=== PATIENT | male | born 1970 | race Two or more races ===

== ENCOUNTER 2019-01-28 23:46 | Observation (INO) | payer BC, MEDICAID, OTHER ==
--- NOTE | 2019-01-29 00:13 | EDM.PDOC ---
ED HPI GENERAL MEDICAL PROBLEM - General Chief Complaint: General Stated Complaint: DISORIENTED,HEAVY BREATHING Time Seen by Provider: 01/29/19 00:12 Source of Information: Reports: Patient, Family () History Limitations: Reports: Other (Patient is disoriented) - History of Present Illness INITIAL COMMENTS - FREE TEXT/NARRATIVE: 48-year-old male who according to the has been disoriented for the past 3 days. He frequently does not know where he is or what his situation is. He also has been having episodes of difficulty breathing that seemed to come and go and intermittent swelling in his right lower extremity. The reports that he has been drinking alcohol "when he can get it". Apparently he lost his job about 3 months ago and he has basically been staying at home, drinking alcohol whenever he can and has been somewhat depressed. He denies any suicidal or homicidal ideation. He denies any pain. He rates his pain as 0/10. He has had no nausea or vomiting. He has had no abdominal pain. He has been urinating okay. There has been no hematuria or dysuria. He takes no medications but his reports that he has diabetes and hypertension. The patient is disoriented to place and time at present. Apparently tonight he had an episode of difficulty breathing associated with this disorientation and he was brought to the emergency department by his for evaluation. He has had no alcohol today. There are no other associated signs or symptoms. There are no other modifying factors. Onset: Other (Intermittent for the past 3 days) Duration: Intermittent, Waxing/Waning Location: Reports: Other (No pain just episodes of shortness of breath and confusion/disorientation) Quality: Reports: Other (Not applicable) Severity: Moderate Improves with: Reports: None Worsens with: Reports: None Context: Reports: Activity, Other (As above no history of trauma.) Associated Symptoms: Reports: Confusion, Shortness of Breath, Other ( Intermittent leg swelling) Treatments SOLUTIONS CONSULTANT: Reports: Other (see below) (Nothing) - Related Data Allergies Allergy/AdvReac Type Severity Reaction Status Date / Time No Known Allergies Allergy Verified 01/29/15 01:51 Home Meds: Home Meds NK [No Known Home Meds] 01/29/15 [History] Past Medical History Endocrine/Metabolic History: Reports: Obesity/BMI 30+ - Past Surgical History Other Surgical History Comment: No previous surgeries. Social & Family History - Tobacco Use Smoking Status *Q: Current Every Day Smoker Years of Tobacco use: 10 Packs/Tins Daily: 0.2 Tobacco Use Comment: Patient states he smokes anywhere for 4-6 ciggarettes a day. - Caffeine Use Caffeine Use: Reports: None - Alcohol Use Alcohol Use History: Yes Alcohol Use Comment: He drinks up to an 8 pack of beer a day - Recreational Drug Use Recreational Drug Use: Yes Drug Use in Last 12 Months: Yes Recreational Drug Type: Reports: Marijuana/Hashish Recreational Drug Use Frequency: Rarely - Living Situation & Occupation Living situation: Reports: (He is here with his .) Occupation: Unemployed ED ROS GENERAL - Review of Systems Review Of Systems: See Below Constitutional: Reports: No Symptoms HEENT: Reports: No Symptoms Respiratory: Reports: Shortness of Breath Cardiovascular: Reports: No Symptoms GI/Abdominal: Reports: No Symptoms : Reports: No Symptoms Musculoskeletal: Reports: Other (Intermittent swelling in right lower extremity. ) Skin: Reports: No Symptoms Neurological: Reports: No Symptoms Psychiatric: Reports: Depression Hematologic/Lymphatic: Reports: No Symptoms Immunologic: Reports: No Symptoms ED EXAM, GENERAL - Physical Exam Exam: See Below Exam Limited By: No Limitations General Appearance: Alert, Mild Distress, Obese, Other (Disheveled and smells of urine) Eye Exam: Bilateral Eye: EOMI, Normal Inspection, PERRL Ears: Normal External Exam Ear Exam: Bilateral Ear: Auricle Normal Nose: Normal Inspection, Normal Mucosa, No Blood Throat/Mouth: Normal Voice, No Airway Compromise, Other (Dry mouth) Head: Atraumatic, Normocephalic Neck: Normal Inspection Respiratory/Chest: No Respiratory Distress, Lungs Clear, Normal Breath Sounds, No Accessory Muscle Use, Chest Non-Tender Cardiovascular: Normal Peripheral Pulses, Regular Rate, Rhythm, No Murmur Peripheral Pulses: 2+: Radial (L), Radial (R) GI/Abdominal: Normal Bowel Sounds, Soft, Non-Tender, No Mass, Other (Protuberant ) Back Exam: Normal Inspection Extremities: Normal Inspection, Normal Range of Motion, Non-Tender, Normal Capillary Refill Neurological: Alert, CN II-XII Intact, No Motor/Sensory Deficits, Confused, Disoriented Skin Exam: Warm, Dry, Intact, Normal Color, No Rash EKG INTERPRETATION EKG Date: 01/29/19 Time: 00:42 Rhythm: NSR [place]: Normal P-Wave: Present QRS: Other (LDH) ST-T: Normal QT: Normal (But with prolonged QTC) Comparison: NA - No Prior EKG Course - Vital Signs Last Recorded V/S: Last Vital Signs Temp 36.7 C 01/29/19 02:11 Pulse 74 01/29/19 02:11 Resp 14 01/29/19 02:11 BP 175/90 H 01/29/19 02:11 Pulse Ox 100 01/29/19 02:11 - Orders/Labs/Meds Orders: Active Orders 24 hr Category Date Time Status EKG Documentation Completion [RC] ASDIRECTED Care 01/29/19 00:24 Active Ang Chest [CT] Stat Exams 01/29/19 01:33 Ordered Chest 2V [CR] Stat Exams 01/29/19 00:22 Taken Head wo Cont [CT] Stat Exams 01/29/19 00:22 Taken Sodium Chloride 0.9% [Normal Saline] 1,000 ml Med 01/29/19 02:46 Active IV .BOLUS Sodium Chloride 0.9% [Saline Flush] Med 01/29/19 00:22 Active 10 ml FLUSH ASDIRECTED PRN Peripheral IV Insertion Adult [OM.PC] Routine Oth 01/29/19 00:22 Ordered EKG 12 Lead [EK] Routine Ther 01/29/19 00:22 Ordered Medication Orders Sodium Chloride (Normal Saline) 1,000 mls @ 999 mls/hr IV .BOLUS ONE Stop: 01/29/19 03:46 Last Admin: 01/29/19 02:35 Dose: 999 mls/hr Sodium Chloride (Normal Saline) 1,000 mls @ 125 mls/hr IV ASDIRECTED SRINATH Lorazepam (Ativan) 1 mg IVPUSH Q2H PRN PRN Reason: Agitation Ondansetron HCl (Zofran) 4 mg IV Q6H PRN PRN Reason: Nausea/Vomiting Sodium Chloride (Saline Flush) 10 ml FLUSH ASDIRECTED PRN PRN Reason: Keep Vein Open Last Admin: 01/29/19 02:46 Dose: 10 ml Admin: 01/29/19 01:30 Dose: 10 ml Labs: Laboratory Tests 01/29/19 01/29/19 01/29/19 Range/Units 00:30 00:30 00:30 WBC 2.5 L (4.5-12.0) X10-3/uL RBC 3.36 L (4.30-5.75) x10(6)uL Hgb 12.3 L (13.5-17.8) g/dL Hct 35.3 (30.0-51.3) % MCV 105.2 H (80-96) fL MCH 36.6 H (27.7-33.6) pg MCHC 34.9 (32.2-35.4) g/dL RDW 16.6 H (11.5-15.5) % Plt Count 38 L (125-369) X10(3)uL MPV 9.1 (7.4-10.4) fL Neut % (Auto) 61.0 (46-82) % Lymph % (Auto) 26.8 (13-37) % [place] % (Auto) 8.1 (4-12) % Eos % (Auto) 2 (1.0-5.0) % Baso % (Auto) 2 (0-2) % Neut # (Auto) 1.5 L (1.6-8.3) # Lymph # (Auto) 0.7 (0.6-5.0) # [place] # (Auto) 0.2 (0.0-1.3) # Eos # (Auto) 0.1 (0.0-0.8) # Baso # (Auto) 0.0 (0.0-0.2) # D-Dimer, Quantitative (0.0-0.59) mg/LFEU POC VBG pH (7.31-7.41) POC VBG pCO2 (41-51) mmHG POC VBG HCO3 (23-28) mmol/L POC VBG Total CO2 (24-29) mmol/L POC VBG Base Excess (-2-3) mmol/L Sodium 142 (135-145) mmol/L Potassium 4.0 (3.5-5.3) mmol/L Chloride 111 H (100-110) mmol/L Carbon Dioxide 25 (21-32) mmol/L BUN 6 L (7-18) mg/dL Creatinine 0.8 (0.70-1.30) mg/dL Est Cr Clr Drug Dosing 114.15 mL/min Estimated GFR (MDRD) > 60 (>60) BUN/Creatinine Ratio 7.5 L (9-20) Glucose 162 H (80-116) mg/dL Calcium 8.3 L (8.6-10.2) mg/dL Magnesium (1.8-2.5) mg/dL Total Bilirubin 2.8 H (0.1-1.3) mg/dL AST 94 H (5-25) IU/L ALT 56 H (12-36) U/L Alkaline Phosphatase 239 H (56-112) IU/L Troponin I 0.027 (<0.017-0.056) ng/mL C-Reactive Protein 0.4 L (0.5-0.9) mg/dL NT-Pro-B Natriuret Pep 92 (<=125) pg/mL Total Protein 7.2 (6.0-8.0) g/dL Albumin 2.2 L (3.5-5.2) g/dL Globulin 5.0 g/dL Albumin/Globulin Ratio 0.4 Urine Color (YELLOW) Urine Appearance (CLEAR) Urine pH (5.0-6.5) Ur Specific [place] (1.010-1.025) Urine Protein (NEGATIVE) mg/dL Urine Glucose (UA) (NORMAL) mg/dL Urine Ketones (NEGATIVE) mg/dL Urine Occult Blood (NEGATIVE) Urine Nitrite (NEGATIVE) Urine Bilirubin (NEGATIVE) Urine Urobilinogen (NEGATIVE) mg/dL Ur Leukocyte Esterase (NEGATIVE) Urine RBC (0-5) Urine WBC (0-5) Ur Squamous Epith Cells (NS,R,O) Urine Bacteria (NS) Urine Mucus (NS) Ethyl Alcohol < 0.03 (<0.03) % 01/29/19 01/29/19 01/29/19 Range/Units 00:30 00:30 00:33 WBC (4.5-12.0) X10-3/uL RBC (4.30-5.75) x10(6)uL Hgb (13.5-17.8) g/dL Hct (30.0-51.3) % MCV (80-96) fL MCH (27.7-33.6) pg MCHC (32.2-35.4) g/dL RDW (11.5-15.5) % Plt Count (125-369) X10(3)uL MPV (7.4-10.4) fL Neut % (Auto) (46-82) % Lymph % (Auto) (13-37) % [place] % (Auto) (4-12) % Eos % (Auto) (1.0-5.0) % Baso % (Auto) (0-2) % Neut # (Auto) (1.6-8.3) # Lymph # (Auto) (0.6-5.0) # [place] # (Auto) (0.0-1.3) # Eos # (Auto) (0.0-0.8) # Baso # (Auto) (0.0-0.2) # D-Dimer, Quantitative 1.07 H (0.0-0.59) mg/LFEU POC VBG pH 7.40 (7.31-7.41) POC VBG pCO2 38.9 L (41-51) mmHG POC VBG HCO3 23.8 (23-28) mmol/L POC VBG Total CO2 25 (24-29) mmol/L POC VBG Base Excess -1 (-2-3) mmol/L Sodium (135-145) mmol/L Potassium (3.5-5.3) mmol/L Chloride (100-110) mmol/L Carbon Dioxide (21-32) mmol/L BUN (7-18) mg/dL Creatinine (0.70-1.30) mg/dL Est Cr Clr Drug Dosing mL/min Estimated GFR (MDRD) (>60) BUN/Creatinine Ratio (9-20) Glucose (80-116) mg/dL Calcium (8.6-10.2) mg/dL Magnesium 1.7 L (1.8-2.5) mg/dL Total Bilirubin (0.1-1.3) mg/dL AST (5-25) IU/L ALT (12-36) U/L Alkaline Phosphatase (56-112) IU/L Troponin I (<0.017-0.056) ng/mL C-Reactive Protein (0.5-0.9) mg/dL NT-Pro-B Natriuret Pep (<=125) pg/mL Total Protein (6.0-8.0) g/dL Albumin (3.5-5.2) g/dL Globulin g/dL Albumin/Globulin Ratio Urine Color (YELLOW) Urine Appearance (CLEAR) Urine pH (5.0-6.5) Ur Specific [place] (1.010-1.025) Urine Protein (NEGATIVE) mg/dL Urine Glucose (UA) (NORMAL) mg/dL Urine Ketones (NEGATIVE) mg/dL Urine Occult Blood (NEGATIVE) Urine Nitrite (NEGATIVE) Urine Bilirubin (NEGATIVE) Urine Urobilinogen (NEGATIVE) mg/dL Ur Leukocyte Esterase (NEGATIVE) Urine RBC (0-5) Urine WBC (0-5) Ur Squamous Epith Cells (NS,R,O) Urine Bacteria (NS) Urine Mucus (NS) Ethyl Alcohol (<0.03) % 01/29/19 Range/Units 01:20 WBC (4.5-12.0) X10-3/uL RBC (4.30-5.75) x10(6)uL Hgb (13.5-17.8) g/dL Hct (30.0-51.3) % MCV (80-96) fL MCH (27.7-33.6) pg MCHC (32.2-35.4) g/dL RDW (11.5-15.5) % Plt Count (125-369) X10(3)uL MPV (7.4-10.4) fL Neut % (Auto) (46-82) % Lymph % (Auto) (13-37) % [place] % (Auto) (4-12) % Eos % (Auto) (1.0-5.0) % Baso % (Auto) (0-2) % Neut # (Auto) (1.6-8.3) # Lymph # (Auto) (0.6-5.0) # [place] # (Auto) (0.0-1.3) # Eos # (Auto) (0.0-0.8) # Baso # (Auto) (0.0-0.2) # D-Dimer, Quantitative (0.0-0.59) mg/LFEU POC VBG pH (7.31-7.41) POC VBG pCO2 (41-51) mmHG POC VBG HCO3 (23-28) mmol/L POC VBG Total CO2 (24-29) mmol/L POC VBG Base Excess (-2-3) mmol/L Sodium (135-145) mmol/L Potassium (3.5-5.3) mmol/L Chloride (100-110) mmol/L Carbon Dioxide (21-32) mmol/L BUN (7-18) mg/dL Creatinine (0.70-1.30) mg/dL Est Cr Clr Drug Dosing mL/min Estimated GFR (MDRD) (>60) BUN/Creatinine Ratio (9-20) Glucose (80-116) mg/dL Calcium (8.6-10.2) mg/dL Magnesium (1.8-2.5) mg/dL Total Bilirubin (0.1-1.3) mg/dL AST (5-25) IU/L ALT (12-36) U/L Alkaline Phosphatase (56-112) IU/L Troponin I (<0.017-0.056) ng/mL C-Reactive Protein (0.5-0.9) mg/dL NT-Pro-B Natriuret Pep (<=125) pg/mL Total Protein (6.0-8.0) g/dL Albumin (3.5-5.2) g/dL Globulin g/dL Albumin/Globulin Ratio Urine Color Yellow (YELLOW) Urine Appearance Clear (CLEAR) Urine pH 6.0 (5.0-6.5) Ur Specific [place] 1.020 (1.010-1.025) Urine Protein Negative (NEGATIVE) mg/dL Urine Glucose (UA) Normal (NORMAL) mg/dL Urine Ketones Negative (NEGATIVE) mg/dL Urine Occult Blood Moderate (NEGATIVE) Urine Nitrite Negative (NEGATIVE) Urine Bilirubin Negative (NEGATIVE) Urine Urobilinogen 4 H (NEGATIVE) mg/dL Ur Leukocyte Esterase Negative (NEGATIVE) Urine RBC 5-10 H (0-5) Urine WBC 0-5 (0-5) Ur Squamous Epith Cells Few H (NS,R,O) Urine Bacteria Few H (NS) Urine Mucus Moderate H (NS) Ethyl Alcohol (<0.03) % Meds: Medications Generic Name Dose Route Start Last Admin Trade Name Freq PRN Reason Stop Dose Admin Sodium Chloride 1,000 mls @ 999 mls/hr 01/29/19 02:46 01/29/19 02:35 Normal Saline IV 01/29/19 03:46 999 mls/hr .BOLUS ONE Administration Sodium Chloride 1,000 mls @ 125 mls/hr 01/29/19 03:30 Normal Saline IV ASDIRECTED SRINATH Lorazepam 1 mg 01/29/19 03:21 Ativan IVPUSH Q2H PRN Agitation Ondansetron HCl 4 mg 01/29/19 03:16 Zofran IV Q6H PRN Nausea/Vomiting Sodium Chloride 10 ml 01/29/19 00:22 01/29/19 02:46 Saline Flush FLUSH 10 ml ASDIRECTED PRN Administration Keep Vein Open Discontinued Medications Generic Name Dose Route Start Last Admin Trade Name Cat PRN Reason Stop Dose Admin Sodium Chloride 500 mls @ 999 mls/hr 01/29/19 01:32 Normal Saline IV 01/29/19 02:02 .BOLUS ONE Iopamidol 100 ml 01/29/19 01:53 01/29/19 02:34 Isovue-370 (76%) IV 01/29/19 01:54 100 ml ONETIME ONE Administration Lorazepam 1 mg 01/29/19 01:50 01/29/19 02:01 Ativan IVPUSH 01/29/19 01:51 1 mg ONETIME ONE Administration - Radiology Interpretation Free Text/Narrative:: Chest x-ray PA and lateral showed no acute disease. - Re-Assessments/Exams Free Text/Narrative Re-Assessment/Exam: 01/29/19 01:36: Patient's blood tests show thrombocytopenia. He also has evidence of liver disease. His chest x-ray was normal. The CT scan of his head showed no acute pathology. His d-dimer was elevated. He will need a CT of his chest rule out PE secondary to his elevated d-dimer and the complaint of shortness of breath and will also give the patient a normal saline 500 mL bolus. 01/29/19 03:30: CTA of the chest showed no definite pulmonary embolus but it was not an optimal study. His sensorium has not cleared. He remains confused and has had episodes of agitation. This agitation improved with Ativan IV. His labs are consistent with alcohol related findings. His confirms that for the end of last week he was drinking about an 18 pack year a day for about 4-5 days. I do feel the patient cannot be safely discharged secondary to his encephalopathy. The patient also has intermittent swelling in his right lower extremity, he may need Doppler venous ultrasound of this leg later today. I will continue IV fluid hydration. I will continue Ativan as needed for agitation and for treatment of his alcohol withdrawal. The hope is that his sensorium will clear. Dr. Centeno will assume care of the patient at 0700 hrs. today, 01/29/2019. I discussed admission with the patient and with his and they are in agreement with the plans for admission. 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 dependence with withdrawal with perceptual disturbance - Discharge Information - My Orders Last 24 Hours: My Active Orders 01/29/19 00:22 Chest 2V [CR] Stat Head wo Cont [CT] Stat Sodium Chloride 0.9% [Saline Flush] 10 ml FLUSH ASDIRECTED PRN Peripheral IV Insertion Adult [OM.PC] Routine EKG 12 Lead [EK] Routine 01/29/19 00:24 EKG Documentation Completion [RC] ASDIRECTED 01/29/19 01:33 Ang Chest [CT] Stat 01/29/19 02:46 Sodium Chloride 0.9% [Normal Saline] 1,000 ml IV .BOLUS - Assessment/Plan Last 24 Hours: My Active Orders 01/29/19 00:22 Chest 2V [CR] Stat Head wo Cont [CT] Stat Sodium Chloride 0.9% [Saline Flush] 10 ml FLUSH ASDIRECTED PRN Peripheral IV Insertion Adult [OM.PC] Routine EKG 12 Lead [EK] Routine 01/29/19 00:24 EKG Documentation Completion [RC] ASDIRECTED 01/29/19 01:33 Ang Chest [CT] Stat 01/29/19 02:46 Sodium Chloride 0.9% [Normal Saline] 1,000 ml IV .BOLUS
[2019-01-29] MEDS: Sodium Chloride 0.9% 10 ML Syringe FLUSH PRN ×3 (01:30→05:11)
[2019-01-29] MEDS ORDERED: Sodium Chloride 0.9% 500 ML IV ONE (01:32)
[2019-01-29] MEDS ORDERED: LORazepam 2 MG/ML SDV IVPUSH ONE (01:50)
[2019-01-29] MEDS ORDERED: Iopamidol 755 Mg/ML 100 ML Bottle IV ONE (01:53)
[2019-01-29] MEDS ORDERED: Sodium Chloride 0.9% 1,000 ML IV ONE (02:46)
[2019-01-29] MEDS ORDERED: Ondansetron 4 MG/2 ML SDV IV PRN (03:16)
[2019-01-29] MEDS ORDERED: LORazepam 2 MG/ML SDV IVPUSH PRN (03:21)
[2019-01-29] MEDS ORDERED: Sodium Chloride 0.9% 1,000 ML IV SCH (03:30)
--- NOTE | 2019-01-29 11:12 | CR ---
INDICATION: Shortness of breath. CHEST: PA and lateral views of the chest were obtained 01/29/19 and compared with chest from 01/29/15. The heart appears to be near the upper limits of normal in size with left ventricular enlargement of mild degree. The aorta is mildly tortuous with minimal calcification in the arch. Dextroconvex scoliosis of the thoracic spine is noted with flowing hyperostotic changes suggesting DISH. An active infiltrate or effusion was not identified. Evidence of exogenous obesity is noted. IMPRESSION: 1. ASHD with mild LVE. 2. Exogenous obesity. 3. Possible DISH with mild dextroconvex scoliosis of the thoracic spine. MTDD
--- NOTE | 2019-01-29 11:16 | US ---
INDICATION: Bilateral leg swelling, elevated D-dimer, question bilateral DVT. DUPLEX ULTRASOUND, LEFT AND RIGHT LOWER EXTREMITY VEINS: Utilizing 2-D real time, duplex Doppler spectral analysis and color flow imaging, examination of the left and right lower extremity veins, including the common femoral vein, proximal greater saphenous vein, proximal deep femoral vein, proximal femoral vein, mid femoral vein, distal femoral vein, popliteal vein, posterior tibial vein, anterior tibial vein, and left peroneal vein, (right peroneal vein not demonstrated), revealed no evidence of deep venous thrombosis or obstruction. Compression views showed no abnormal lack of compression to suggest thrombosis. No evidence of incompetence of the valves was identified. IMPRESSION: Duplex ultrasound, left and right lower extremity veins, shows no evidence of deep venous thrombosis or incompetence. [facility]
--- NOTE | 2019-01-29 11:48 | PCM.HP ---
H&P History of Present Illness - General Date of Service: 01/29/19 Admit Problem/Dx: Admission Diagnosis/Problem Admission Diagnosis/Problem Encephalopathy Source of Information: Patient, EMS Notes Reviewed, Old Records - History of Present Illness Initial Comments - Free Text/Narative: 48-year-old male who has been more confused and disoriented over the past 3 days but he states past week. He also has been having episodes of difficulty breathing that seemed to come and go and intermittent swelling in his right lower extremity. 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 He had been sober since 1993 when he went through AA program. He denies any suicidal or homicidal ideation. He denies any pain. No chest pain, coughing, nausea, vomiting, diarrhea, abdominal pain, no dysuria or hematuria. Takes diphenhydramine at night for sleep. He reports last drink was a few days ago. No history of DTs or alcohol withdrawal seizures. Has daily bowel movements. Last night he had an episode of difficulty breathing associated with this disorientation and he was brought to the emergency department by his for evaluation. - Related Data Allergies/Adverse Reactions: Allergies Allergy/AdvReac Type Severity Reaction Status Date / Time No Known Allergies Allergy Verified 01/29/15 01:51 Home Medications: Home Meds diphenhydrAMINE HCl [Nighttime Sleep Aid] 25 mg PO BEDTIME PRN 01/29/19 [History ] Past Medical History Other Musculoskeletal History: old L hand fx Endocrine/Metabolic History: Reports: Obesity/BMI 30+ - Past Surgical History Other Surgical History Comment: No previous surgeries. Social & Family History - Family History Family Medical History: Unobtainable - Tobacco Use Smoking Status *Q: Current Every Day Smoker Years of Tobacco use: 10 Packs/Tins Daily: 0.2 Tobacco Use Comment: Patient states he smokes anywhere for 4-6 ciggarettes a day. - Caffeine Use Caffeine Use: Reports: None - Alcohol Use Alcohol Use History: Yes Date/Time of Last Drink Comment: 01/26/2019 Alcohol Use in Last Twelve Months: Yes Alcohol Use Frequency: Daily Alcohol Use Comment: had been sober since 1993 but started drinking again in October 2018. - Recreational Drug Use Recreational Drug Use: Yes Drug Use in Last 12 Months: Yes Recreational Drug Type: Reports: Marijuana/Hashish Recreational Drug Use Frequency: Rarely - Living Situation & Occupation Living situation: Reports: (He is here with his .) Occupation: Unemployed H&P Review of Systems - Review of Systems: Review Of Systems: See Below General: Denies: Fever, Chills, Malaise, Diaphoresis HEENT: Reports: No Symptoms Pulmonary: Reports: Shortness of Breath. Denies: Cough Cardiovascular: Reports: Edema. Denies: Chest Pain, Palpitations Gastrointestinal: Denies: Abdominal Pain, Black Stool, Bloody Stool, Constipation, Diarrhea, Decreased Appetite, Nausea, Vomiting Genitourinary: Denies: Dysuria, Frequency, Hematuria Musculoskeletal: Reports: Leg Pain Skin: Reports: Other (acanthosis nigricans, skin tags, stasis dermatitis) Psychiatric: Reports: Confusion, Depression. Denies: Hallucinations, Suicidal Ideation Neurological: Reports: Tremors. Denies: Dizziness, Headache, Tingling Exam - Exam Exam: See Below - Vital Signs Vital Signs: Last Vital Signs Temp 36.7 C 01/29/19 08:00 Pulse 72 01/29/19 08:00 Resp 18 01/29/19 08:00 BP 138/72 01/29/19 08:00 Pulse Ox 100 01/29/19 08:00 Weight: 164.427 kg - Exam General: Alert, Cooperative Lungs: Clear to Auscultation, Normal Respiratory Effort Cardiovascular: Regular Rate, Regular Rhythm GI/Abdominal Exam: Normal Bowel Sounds, Soft, Non-Tender Extremities: Pedal Edema (3+ RLE, 2+LLE), Leg Pain. No: Rachna's Sign, Increased Warmth Skin: Other (acanthosis nigricans, skin tags, stasis dermatitis) Neuro Extensive - Mental Status: Alert, Oriented x3 Neuro Extensive - Motor, Sensory, Reflexes: CN II-XII Intact, Tremor Psychiatric: Normal Affect - Patient Data Lab Results Last 24 hrs: Laboratory Results - last 24 hr 01/29/19 01/29/19 01/29/19 Range/Units 00:30 00:30 00:30 WBC 2.5 L (4.5-12.0) X10-3/uL RBC 3.36 L (4.30-5.75) x10(6)uL Hgb 12.3 L (13.5-17.8) g/dL Hct 35.3 (30.0-51.3) % MCV 105.2 H (80-96) fL MCH 36.6 H (27.7-33.6) pg MCHC 34.9 (32.2-35.4) g/dL RDW 16.6 H (11.5-15.5) % Plt Count 38 L (125-369) X10(3)uL MPV 9.1 (7.4-10.4) fL Neut % (Auto) 61.0 (46-82) % Lymph % (Auto) 26.8 (13-37) % [place] % (Auto) 8.1 (4-12) % Eos % (Auto) 2 (1.0-5.0) % Baso % (Auto) 2 (0-2) % Neut # (Auto) 1.5 L (1.6-8.3) # Lymph # (Auto) 0.7 (0.6-5.0) # [place] # (Auto) 0.2 (0.0-1.3) # Eos # (Auto) 0.1 (0.0-0.8) # Baso # (Auto) 0.0 (0.0-0.2) # D-Dimer, Quantitative (0.0-0.59) mg/LFEU POC VBG pH (7.31-7.41) POC VBG pCO2 (41-51) mmHG POC VBG HCO3 (23-28) mmol/L POC VBG Total CO2 (24-29) mmol/L POC VBG Base Excess (-2-3) mmol/L Sodium 142 (135-145) mmol/L Potassium 4.0 (3.5-5.3) mmol/L Chloride 111 H (100-110) mmol/L Carbon Dioxide 25 (21-32) mmol/L BUN 6 L (7-18) mg/dL Creatinine 0.8 (0.70-1.30) mg/dL Est Cr Clr Drug Dosing 114.15 mL/min Estimated GFR (MDRD) > 60 (>60) BUN/Creatinine Ratio 7.5 L (9-20) Glucose 162 H (80-116) mg/dL POC Glucose (80-116) mg/dL Calcium 8.3 L (8.6-10.2) mg/dL Magnesium (1.8-2.5) mg/dL Total Bilirubin 2.8 H (0.1-1.3) mg/dL AST 94 H (5-25) IU/L ALT 56 H (12-36) U/L Alkaline Phosphatase 239 H (56-112) IU/L Troponin I 0.027 (<0.017-0.056) ng/mL C-Reactive Protein 0.4 L (0.5-0.9) mg/dL NT-Pro-B Natriuret Pep 92 (<=125) pg/mL Total Protein 7.2 (6.0-8.0) g/dL Albumin 2.2 L (3.5-5.2) g/dL Globulin 5.0 g/dL Albumin/Globulin Ratio 0.4 Urine Color (YELLOW) Urine Appearance (CLEAR) Urine pH (5.0-6.5) Ur Specific [place] (1.010-1.025) Urine Protein (NEGATIVE) mg/dL Urine Glucose (UA) (NORMAL) mg/dL Urine Ketones (NEGATIVE) mg/dL Urine Occult Blood (NEGATIVE) Urine Nitrite (NEGATIVE) Urine Bilirubin (NEGATIVE) Urine Urobilinogen (NEGATIVE) mg/dL Ur Leukocyte Esterase (NEGATIVE) Urine RBC (0-5) Urine WBC (0-5) Ur Squamous Epith Cells (NS,R,O) Urine Bacteria (NS) Urine Mucus (NS) Ethyl Alcohol < 0.03 (<0.03) % 01/29/19 01/29/19 01/29/19 Range/Units 00:30 00:30 00:33 WBC (4.5-12.0) X10-3/uL RBC (4.30-5.75) x10(6)uL Hgb (13.5-17.8) g/dL Hct (30.0-51.3) % MCV (80-96) fL MCH (27.7-33.6) pg MCHC (32.2-35.4) g/dL RDW (11.5-15.5) % Plt Count (125-369) X10(3)uL MPV (7.4-10.4) fL Neut % (Auto) (46-82) % Lymph % (Auto) (13-37) % [place] % (Auto) (4-12) % Eos % (Auto) (1.0-5.0) % Baso % (Auto) (0-2) % Neut # (Auto) (1.6-8.3) # Lymph # (Auto) (0.6-5.0) # [place] # (Auto) (0.0-1.3) # Eos # (Auto) (0.0-0.8) # Baso # (Auto) (0.0-0.2) # D-Dimer, Quantitative 1.07 H (0.0-0.59) mg/LFEU POC VBG pH 7.40 (7.31-7.41) POC VBG pCO2 38.9 L (41-51) mmHG POC VBG HCO3 23.8 (23-28) mmol/L POC VBG Total CO2 25 (24-29) mmol/L POC VBG Base Excess -1 (-2-3) mmol/L Sodium (135-145) mmol/L Potassium (3.5-5.3) mmol/L Chloride (100-110) mmol/L Carbon Dioxide (21-32) mmol/L BUN (7-18) mg/dL Creatinine (0.70-1.30) mg/dL Est Cr Clr Drug Dosing mL/min Estimated GFR (MDRD) (>60) BUN/Creatinine Ratio (9-20) Glucose (80-116) mg/dL POC Glucose (80-116) mg/dL Calcium (8.6-10.2) mg/dL Magnesium 1.7 L (1.8-2.5) mg/dL Total Bilirubin (0.1-1.3) mg/dL AST (5-25) IU/L ALT (12-36) U/L Alkaline Phosphatase (56-112) IU/L Troponin I (<0.017-0.056) ng/mL C-Reactive Protein (0.5-0.9) mg/dL NT-Pro-B Natriuret Pep (<=125) pg/mL Total Protein (6.0-8.0) g/dL Albumin (3.5-5.2) g/dL Globulin g/dL Albumin/Globulin Ratio Urine Color (YELLOW) Urine Appearance (CLEAR) Urine pH (5.0-6.5) Ur Specific [place] (1.010-1.025) Urine Protein (NEGATIVE) mg/dL Urine Glucose (UA) (NORMAL) mg/dL Urine Ketones (NEGATIVE) mg/dL Urine Occult Blood (NEGATIVE) Urine Nitrite (NEGATIVE) Urine Bilirubin (NEGATIVE) Urine Urobilinogen (NEGATIVE) mg/dL Ur Leukocyte Esterase (NEGATIVE) Urine RBC (0-5) Urine WBC (0-5) Ur Squamous Epith Cells (NS,R,O) Urine Bacteria (NS) Urine Mucus (NS) Ethyl Alcohol (<0.03) % 01/29/19 01/29/19 Range/Units 01:20 11:33 WBC (4.5-12.0) X10-3/uL RBC (4.30-5.75) x10(6)uL Hgb (13.5-17.8) g/dL Hct (30.0-51.3) % MCV (80-96) fL MCH (27.7-33.6) pg MCHC (32.2-35.4) g/dL RDW (11.5-15.5) % Plt Count (125-369) X10(3)uL MPV (7.4-10.4) fL Neut % (Auto) (46-82) % Lymph % (Auto) (13-37) % [place] % (Auto) (4-12) % Eos % (Auto) (1.0-5.0) % Baso % (Auto) (0-2) % Neut # (Auto) (1.6-8.3) # Lymph # (Auto) (0.6-5.0) # [place] # (Auto) (0.0-1.3) # Eos # (Auto) (0.0-0.8) # Baso # (Auto) (0.0-0.2) # D-Dimer, Quantitative (0.0-0.59) mg/LFEU POC VBG pH (7.31-7.41) POC VBG pCO2 (41-51) mmHG POC VBG HCO3 (23-28) mmol/L POC VBG Total CO2 (24-29) mmol/L POC VBG Base Excess (-2-3) mmol/L Sodium (135-145) mmol/L Potassium (3.5-5.3) mmol/L Chloride (100-110) mmol/L Carbon Dioxide (21-32) mmol/L BUN (7-18) mg/dL Creatinine (0.70-1.30) mg/dL Est Cr Clr Drug Dosing mL/min Estimated GFR (MDRD) (>60) BUN/Creatinine Ratio (9-20) Glucose (80-116) mg/dL POC Glucose 90 (80-116) mg/dL Calcium (8.6-10.2) mg/dL Magnesium (1.8-2.5) mg/dL Total Bilirubin (0.1-1.3) mg/dL AST (5-25) IU/L ALT (12-36) U/L Alkaline Phosphatase (56-112) IU/L Troponin I (<0.017-0.056) ng/mL C-Reactive Protein (0.5-0.9) mg/dL NT-Pro-B Natriuret Pep (<=125) pg/mL Total Protein (6.0-8.0) g/dL Albumin (3.5-5.2) g/dL Globulin g/dL Albumin/Globulin Ratio Urine Color Yellow (YELLOW) Urine Appearance Clear (CLEAR) Urine pH 6.0 (5.0-6.5) Ur Specific [place] 1.020 (1.010-1.025) Urine Protein Negative (NEGATIVE) mg/dL Urine Glucose (UA) Normal (NORMAL) mg/dL Urine Ketones Negative (NEGATIVE) mg/dL Urine Occult Blood Moderate (NEGATIVE) Urine Nitrite Negative (NEGATIVE) Urine Bilirubin Negative (NEGATIVE) Urine Urobilinogen 4 H (NEGATIVE) mg/dL Ur Leukocyte Esterase Negative (NEGATIVE) Urine RBC 5-10 H (0-5) Urine WBC 0-5 (0-5) Ur Squamous Epith Cells Few H (NS,R,O) Urine Bacteria Few H (NS) Urine Mucus Moderate H (NS) Ethyl Alcohol (<0.03) % Result Diagrams: 01/29/19 00:30 01/29/19 00:30 Imaging Impressions Last 24 hrs: CT head: negative. CTA: No pulmonary embolism but distal vessels difficult to assess due to patient movement during exam. US: No DVT BLE, edematous. - Problem List (1) Alcohol withdrawal SNOMED Code(s): 779789417 ICD Code: F10.239 - ALCOHOL DEPENDENCE WITH WITHDRAWAL, UNSPECIFIED Status : Acute Current Visit: Yes Qualifiers: Complication of substance-induced condition: with perceptual disturbance Qualified Code(s): F10.232 - Alcohol dependence with withdrawal with perceptual disturbance (2) Dehydration SNOMED Code(s): 35505838 ICD Code: E86.0 - DEHYDRATION Status: Acute Current Visit: Yes (3) Encephalopathy SNOMED Code(s): 89288561 ICD Code: G93.40 - ENCEPHALOPATHY, UNSPECIFIED Status: Acute Current Visit: Yes (4) Thrombocytopenia SNOMED Code(s): 805448875 ICD Code: D69.6 - THROMBOCYTOPENIA, UNSPECIFIED Status: Acute Current Visit: Yes Problem List Initiated/Reviewed/Updated: Yes Orders Last 24hrs: Active Orders 24 hr Category Date Time Status Admission Status [Patient Status] [ADT] Routine ADT 01/29/19 03:07 Active Blood Glucose Check, Bedside [RC] QIDACANDBED Care 01/29/19 03:16 Active CIWAA Assessment [RC] 00,04,08,12,16,20 Care 01/29/19 03:20 Active EKG Documentation Completion [RC] ASDIRECTED Care 01/29/19 00:24 Active Height and Weight [RC] UPON Care 01/29/19 03:16 Active Intake and Output [RC] 06,14,22 Care 01/29/19 03:17 Active Oxygen Therapy [RC] PRN Care 01/29/19 03:16 Active Pulse Oximetry [RC] PRN Care 01/29/19 03:17 Active Up With Assistance [RC] ASDIRECTED Care 01/29/19 03:16 Active VTE/DVT Education [RC] Per Unit Routine Care 01/29/19 03:16 Active Vital Signs [RC] 00,04,08,12,16,20 Care 01/29/19 03:16 Active Consistent Carbohydrate Diet [DIET] Diet 01/29/19 Breakfast Active Ang Chest [CT] Stat Exams 01/29/19 01:33 Taken Head wo Cont [CT] Stat Exams 01/29/19 00:22 Taken LORazepam [Ativan] Med 01/29/19 03:21 Active 1 mg IVPUSH Q2H PRN Ondansetron [Zofran] Med 01/29/19 03:16 Active 4 mg IV Q6H PRN Sodium Chloride 0.9% [Saline Flush] Med 01/29/19 00:22 Active 10 ml FLUSH ASDIRECTED PRN Convert IV to Saline Lock [OM.PC] Routine Oth 01/29/19 08:38 Ordered Peripheral IV Insertion Adult [OM.PC] Routine Oth 01/29/19 00:22 Ordered Resuscitation Status Routine Resus Stat 01/29/19 03:16 Ordered EKG 12 Lead [EK] Routine Ther 01/29/19 00:22 Stop Req Medication Orders Lorazepam (Ativan) 1 mg IVPUSH Q2H PRN PRN Reason: Agitation Last Admin: 01/29/19 05:07 Dose: 1 mg Ondansetron HCl (Zofran) 4 mg IV Q6H PRN PRN Reason: Nausea/Vomiting Sodium Chloride (Saline Flush) 10 ml FLUSH ASDIRECTED PRN PRN Reason: Keep Vein Open Last Admin: 01/29/19 05:11 Dose: 10 ml Admin: 01/29/19 02:46 Dose: 10 ml Admin: 01/29/19 01:30 Dose: 10 ml Assessment/Plan Comment:: 1. Admit for observation for alcohol withdrawal, confusion, depression, thrombocytopenia. 2. [facility] protocol for withdrawal symptoms, referral to [facility]. Thiamine, folate and MTV daily. Repeat labs in am. 3. Ultrasound for leg swelling showed no DVT but edematous. Has stasis dermatitis changes to skin, WBC is low. 4. Saline lock, completed IV fluids started in ER. 5. If patient improved overnight, would anticipate discharge tomorrow. 6. Adjust treatments as necessary. 7. Full Code.
[2019-01-29] MEDS ORDERED: Folic Acid 1 MG Tab PO SCH (21:00)
[2019-01-29] MEDS ORDERED: Thiamine 100 MG Tab PO SCH (21:00)
[2019-01-29] MEDS ORDERED: Magnesium Oxide 400 MG Tab PO SCH (21:00)
[2019-01-29] MEDS ORDERED: Multivitamin Tab PO SCH (21:00)
[2019-01-30 10:06] VITALS: BP 174/83; PULSE 75
--- NOTE | 2019-01-30 12:47 | PCM.DCSUM1 ---
Discharge Summary - Hospital Course HPI Initial Comments: 48-year-old male who has been more confused and disoriented over the past 3 days but he states past week. He also has been having episodes of difficulty breathing that seemed to come and go and intermittent swelling in his right lower extremity. 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 He had been sober since 1993 when he went through AA program. He denies any suicidal or homicidal ideation. He denies any pain. No chest pain, coughing, nausea, vomiting, diarrhea, abdominal pain, no dysuria or hematuria. Takes diphenhydramine at night for sleep. He reports last drink was a few days ago. No history of DTs or alcohol withdrawal seizures. Has daily bowel movements. Last night he had an episode of difficulty breathing associated with this disorientation and he was brought to the emergency department by his for evaluation. Diagnosis: Stroke: No - Discharge Data Discharge Date: 01/30/19 Discharge Disposition: Home, Self-Care 01 Condition: Good - Discharge Diagnosis/Problem(s) (1) Alcohol withdrawal SNOMED Code(s): 472512717 ICD Code: F10.239 - ALCOHOL DEPENDENCE WITH WITHDRAWAL, UNSPECIFIED Status : Acute Qualifiers: Complication of substance-induced condition: with perceptual disturbance Qualified Code(s): F10.232 - Alcohol dependence with withdrawal with perceptual disturbance (2) Dehydration SNOMED Code(s): 80499525 ICD Code: E86.0 - DEHYDRATION Status: Resolved (3) Encephalopathy SNOMED Code(s): 79844766 ICD Code: G93.40 - ENCEPHALOPATHY, UNSPECIFIED Status: Resolved (4) Thrombocytopenia SNOMED Code(s): 468954139 ICD Code: D69.6 - THROMBOCYTOPENIA, UNSPECIFIED Status: Acute - Patient Summary/Data Hospital Course: Patient was admitted for observation and IV Fluids. Completed IV fluids and felt better. [facility] protocol for alcohol withdrawal, gradually trended down, very rare tremors on day of discharge. Patient mentation improved during hospital course, he felt back to his baseline at discharge. Ultrasound of RLE showed edema but no DVT. Had no signs of cellulitis, chronic stasis dermatitis. Met with Chemical dependence counselor from [facility], did not qualify for services with [facility] as he is resident of [place] but she gave resources available in [facility] for him. - Patient Instructions Diet: Regular Diet as Tolerated Driving: May Drive Today Showering/Bathing: May Shower Notify Provider of: Fever, Increased Pain, Swelling and Redness - Discharge Plan *PRESCRIPTION DRUG MONITORING PROGRAM REVIEWED*: Not Applicable *COPY OF PRESCRIPTION DRUG MONITORING REPORT IN PATIENT MINDA: No Home Medications: Home Meds diphenhydrAMINE HCl [Nighttime Sleep Aid] 25 mg PO BEDTIME PRN 01/29/19 [History ] Forms: Return to Work, Inpatient [facility], ED Department Discharge Referrals: Anthony Lara MD [Primary Care Provider] - - Discharge Summary/Plan Comment DC Time >30 min.: No - Patient Data Vitals - Most Recent: Last Vital Signs Temp 36.7 C 01/30/19 07:33 Pulse 75 01/30/19 07:33 Resp 18 01/30/19 07:33 BP 174/83 H 01/30/19 07:33 Pulse Ox 100 01/30/19 07:33 Weight - Most Recent: 164.427 kg I&O - Last 24 hours: Intake & Output 01/29/19 01/30/19 01/30/19 22:59 06:59 14:59 Output Total 600 1300 Balance -600 -1300 Lab Results - Last 24 hrs: Laboratory Results - last 24 hr 01/29/19 01/29/19 Range/Units 17:45 21:20 POC Glucose 101 111 (80-116) mg/dL Med Orders - Current: Current Medications Discontinued Medications Folic Acid (Folic Acid) 1 mg PO BEDTIME [facility] Last Admin: 01/29/19 21:16 Dose: 1 mg Sodium Chloride (Normal Saline) 500 mls @ 999 mls/hr IV .BOLUS ONE Stop: 01/29/19 02:02 Last Admin: 01/29/19 04:32 Dose: Not Given Sodium Chloride (Normal Saline) 1,000 mls @ 999 mls/hr IV .BOLUS ONE Stop: 01/29/19 03:46 Last Admin: 01/29/19 02:35 Dose: 999 mls/hr Sodium Chloride (Normal Saline) 1,000 mls @ 125 mls/hr IV ASDIRECTED [facility] Last Admin: 01/30/19 03:00 Dose: 125 mls/hr Iopamidol (Isovue-370 (76%)) 100 ml IV ONETIME ONE Stop: 01/29/19 01:54 Last Admin: 01/29/19 02:34 Dose: 100 ml Lorazepam (Ativan) 1 mg IVPUSH ONETIME ONE Stop: 01/29/19 01:51 Last Admin: 01/29/19 02:01 Dose: 1 mg Lorazepam (Ativan) 1 mg IVPUSH Q2H PRN PRN Reason: Agitation Last Admin: 01/29/19 05:07 Dose: 1 mg Magnesium Oxide (Magnesium Oxide) 400 mg PO BEDTIME SRINATH Last Admin: 01/29/19 21:16 Dose: 400 mg Multivitamins/Minerals/Vitamin C (Tab-A-Tamika) 1 tab PO BEDTIME SRINATH Last Admin: 01/29/19 21:16 Dose: 1 tab Ondansetron HCl (Zofran) 4 mg IV Q6H PRN PRN Reason: Nausea/Vomiting Sodium Chloride (Saline Flush) 10 ml FLUSH ASDIRECTED PRN PRN Reason: Keep Vein Open Last Admin: 01/29/19 05:11 Dose: 10 ml Thiamine HCl (Vitamin B-1) 100 mg PO BEDTIME SRINATH Last Admin: 01/29/19 21:16 Dose: 100 mg - Exam General: Reports: Alert, Oriented, Cooperative Lungs: Reports: Clear to Auscultation, Normal Respiratory Effort Cardiovascular: Reports: Regular Rate, Regular Rhythm GI/Abdominal Exam: Normal Bowel Sounds, Soft, Non-Tender, No Distention Extremities: Pedal Edema. No: Leg Pain Neurological: Reports: Other (very rare tremor of hands today)
== END 2019-01-30 10:55 | disposition home or self-care (01) ==
LOC: FB.ED 23:46 → FB.MS 01-29 03:07
PROVIDERS: ADMIT Emergency Medicine; ATTEND Family Medicine
DX: F10.232 Alcohol dependence with withdrawal with perceptual disturbance (principal); E86.0 Dehydration; G93.40 Encephalopathy, unspecified; D69.6 Thrombocytopenia, unspecified; F32.9 Major depressive disorder, single episode, unspecified; F17.210 Nicotine dependence, cigarettes, uncomplicated
CPT/HCPCS: 36415; 70450; 71046; 71275; 80053; 81001; 82803; 82962; 83735; 83880; 84484; 85025; 85379; 86140; 93005; 93970; 96374; 99285; A9270; G0480; J2060; J7030; Q9967; 93010; 96361; 96376; G0378

== ENCOUNTER 2019-02-25 21:23 | Observation (INO) | payer OTHER ==
--- NOTE | 2019-02-25 22:07 | EDM.PDOC ---
ED HPI GENERAL MEDICAL PROBLEM - General Stated Complaint: DISORIENTED Time Seen by Provider: 02/25/19 22:05 Source of Information: Reports: Patient, Family (Patient's ) - History of Present Illness INITIAL COMMENTS - FREE TEXT/NARRATIVE: 48-year-old male who states that he can't recognize people and he feels disoriented. According to his he has been confused pretty much all day. He seems to have been hallucinating at times and at times he doesn't recognize people around him. He has been less active. He does have a history of alcohol liver disease and alcohol abuse but reports that he has been sober (and his confirms this) for the past 4 weeks. He has had no fevers. He's had no chills. He apparently has been eating and drinking normally. No vomiting. No diarrhea. The reports that he is really not been sleeping that well for the past day or so. He denies any pain. He would rate his pain as a 0/10. The swelling in his legs is better than in the past. He has been followed in the clinic 2 with the last visit on Tuesday of this last week. He is supposed to be getting an ultrasound of his abdomen on this Tuesday with follow-up in the [facility]. There are no other associated signs or symptoms. There are no other modifying factors. Onset: Today Duration: Constant Location: Reports: Other (No pain) Quality: Reports: Other (No pain. 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: Reports: Other (see below) (Nothing) denies Pain Score (Numeric/FACES): 0 - Related Data Allergies Allergy/AdvReac Type Severity Reaction Status Date / Time No Known Allergies Allergy Verified 01/29/15 01:51 Home Meds: Home Meds diphenhydrAMINE HCl [Nighttime Sleep Aid] 25 mg PO BEDTIME PRN 01/29/19 [History ] Past Medical History Cardiovascular History: Reports: Hypertension Gastrointestinal History: Reports: Cirrhosis (Versus alcohol-related liver disease) Psychiatric History: Reports: Addiction (I'll call abuse) Endocrine/Metabolic History: Reports: Obesity/BMI 30+ - Past Surgical History Other Surgical History Comment: No previous surgeries. Social & Family History - Tobacco Use Smoking Status *Q: Current Every Day Smoker - Caffeine Use Caffeine Use: Reports: None - Alcohol Use Alcohol Use History: Yes Alcohol Use Comment: States sober for the past 4 weeks but heavy prior to this. - Recreational Drug Use Recreational Drug Use: No - Living Situation & Occupation Living situation: Reports: (He is here with his .) Occupation: Unemployed ED ROS GENERAL - Review of Systems Review Of Systems: See Below Constitutional: Reports: No Symptoms HEENT: Reports: No Symptoms Respiratory: Reports: No Symptoms Cardiovascular: Reports: No Symptoms Endocrine: Reports: No Symptoms GI/Abdominal: Reports: No Symptoms : Reports: No Symptoms Musculoskeletal: Reports: No Symptoms Skin: Reports: No Symptoms Neurological: Reports: Other (Confusion as above) Psychiatric: Reports: Confusion, Hallucinations (At times) Hematologic/Lymphatic: Reports: No Symptoms Immunologic: Reports: No Symptoms - Physical Exam Exam: See Below Exam Limited By: No Limitations General Appearance: Alert, No Apparent Distress, Obese Eye Exam: Bilateral Eye: EOMI, PERRL, Other (Icteric sclera) Ears: Normal External Exam, Hearing Grossly Normal Nose: Normal Inspection, Normal Mucosa, No Blood Throat/Mouth: Normal Inspection, Normal Oropharynx, Normal Voice, No Airway Compromise Head Exam: Atraumatic, Normocephalic Neck: Normal Inspection, Supple, Non-Tender, Full Range of Motion Respiratory/Chest: No Respiratory Distress, Lungs Clear, Normal Breath Sounds, No Accessory Muscle Use, Chest Non-Tender Cardiovascular: Normal Peripheral Pulses, Regular Rate, Rhythm, No Murmur GI/Abdominal: Normal Bowel Sounds, Soft, Non-Tender, No Mass, Other ( Protuberant. Some evidence of edema in abdominal wall). No: Rebound Neuro Exam (Abbreviated): Alert, CN II-XII Intact, No Motor/Sensory Deficits, Confused (Slightly. He is oriented to place and person. He is unsure of times and sequences.) Back Exam: Normal Inspection Extremities: Normal Range of Motion, Non-Tender, Normal Capillary Refill, Pedal Edema (1+ in both legs) Skin Exam: Warm, Dry, Intact, Normal Color, No Rash Course - Vital Signs Last Recorded V/S: Last Vital Signs Temp 36.5 C 02/26/19 02:05 Pulse 90 02/26/19 02:05 Resp 20 02/26/19 02:05 BP 149/64 H 02/26/19 02:05 Pulse Ox 100 02/26/19 02:06 Orthostatic Blood Pressure [ 186/93 Standing] Orthostatic Blood Pressure [ 166/84 Sitting] Orthostatic Blood Pressure [ 176/89 Supine] - Orders/Labs/Meds Orders: Active Orders 24 hr Category Date Time Status Admission Status [Patient Status] [ADT] Routine ADT 02/26/19 01:17 Active Orthostatic Vital Signs [RC] ASDIRECTED Care 02/25/19 22:23 Active AMMONIA, PLASMA Stat Lab 02/26/19 01:35 Received Sodium Chloride 0.9% [Normal Saline] 1,000 ml Med 02/26/19 01:15 Active IV ASDIRECTED Medication Orders Sodium Chloride (Normal Saline) 1,000 mls @ 125 mls/hr IV ASDIRECTED SRINATH Last Admin: 02/26/19 02:03 Dose: 125 mls/hr Lactulose (Cephulac) 20 gm PO ONETIME ONE Stop: 02/26/19 07:01 Labs: Laboratory Tests 02/25/19 02/25/19 02/25/19 Range/Units 22:37 22:37 22:37 WBC 3.8 L (4.5-12.0) X10-3/uL RBC 3.70 L (4.30-5.75) x10(6)uL Hgb 13.4 L (13.5-17.8) g/dL Hct 38.2 (30.0-51.3) % MCV 103.3 H (80-96) fL MCH 36.2 H (27.7-33.6) pg MCHC 35.0 (32.2-35.4) g/dL RDW 15.0 (11.5-15.5) % Plt Count 44 L (125-369) X10(3)uL MPV 9.6 (7.4-10.4) fL Add Manual Diff Yes Neutrophils % (Manual) 54 (46-82) % Lymphocytes % (Manual) 38 H (13-37) % Monocytes % (Manual) 5 (4-12) % Eosinophils % (Manual) 1 (0-5) % Basophils % (Manual) 2 (0-2) % Sodium 140 (135-145) mmol/L Potassium 3.6 (3.5-5.3) mmol/L Chloride 108 (100-110) mmol/L Carbon Dioxide 24 (21-32) mmol/L BUN 8 (7-18) mg/dL Creatinine 0.7 (0.70-1.30) mg/dL Est Cr Clr Drug Dosing TNP Estimated GFR (MDRD) > 60 (>60) BUN/Creatinine Ratio 11.4 (9-20) Glucose 136 H (80-116) mg/dL Calcium 8.3 L (8.6-10.2) mg/dL Magnesium 1.7 L (1.8-2.5) mg/dL Total Bilirubin 3.2 H (0.1-1.3) mg/dL AST 141 H D (5-25) IU/L ALT 98 H D (12-36) U/L Alkaline Phosphatase 290 H (56-112) IU/L Total Protein 7.8 (6.0-8.0) g/dL Albumin 2.5 L (3.5-5.2) g/dL Globulin 5.3 g/dL Albumin/Globulin Ratio 0.5 Urine Color (YELLOW) Urine Appearance (CLEAR) Urine pH (5.0-6.5) Ur Specific [place] (1.010-1.025) Urine Protein (NEGATIVE) mg/dL Urine Glucose (UA) (NORMAL) mg/dL Urine Ketones (NEGATIVE) mg/dL Urine Occult Blood (NEGATIVE) Urine Nitrite (NEGATIVE) Urine Bilirubin (NEGATIVE) Urine Urobilinogen (NEGATIVE) mg/dL Ur Leukocyte Esterase (NEGATIVE) Urine RBC (0-5) Urine WBC (0-5) Ur Squamous Epith Cells (NS,R,O) Urine Bacteria (NS) Urine Mucus (NS) Ethyl Alcohol < 0.03 (<0.03) % 02/26/19 Range/Units 00:02 WBC (4.5-12.0) X10-3/uL RBC (4.30-5.75) x10(6)uL Hgb (13.5-17.8) g/dL Hct (30.0-51.3) % MCV (80-96) fL MCH (27.7-33.6) pg MCHC (32.2-35.4) g/dL RDW (11.5-15.5) % Plt Count (125-369) X10(3)uL MPV (7.4-10.4) fL Add Manual Diff Neutrophils % (Manual) (46-82) % Lymphocytes % (Manual) (13-37) % Monocytes % (Manual) (4-12) % Eosinophils % (Manual) (0-5) % Basophils % (Manual) (0-2) % Sodium (135-145) mmol/L Potassium (3.5-5.3) mmol/L Chloride (100-110) mmol/L Carbon Dioxide (21-32) mmol/L BUN (7-18) mg/dL Creatinine (0.70-1.30) mg/dL Est Cr Clr Drug Dosing Estimated GFR (MDRD) (>60) BUN/Creatinine Ratio (9-20) Glucose (80-116) mg/dL Calcium (8.6-10.2) mg/dL Magnesium (1.8-2.5) mg/dL Total Bilirubin (0.1-1.3) mg/dL AST (5-25) IU/L ALT (12-36) U/L Alkaline Phosphatase (56-112) IU/L Total Protein (6.0-8.0) g/dL Albumin (3.5-5.2) g/dL Globulin g/dL Albumin/Globulin Ratio Urine Color Yellow (YELLOW) Urine Appearance Clear (CLEAR) Urine pH 5.0 (5.0-6.5) Ur Specific [place] 1.010 (1.010-1.025) Urine Protein Negative (NEGATIVE) mg/dL Urine Glucose (UA) Normal (NORMAL) mg/dL Urine Ketones Negative (NEGATIVE) mg/dL Urine Occult Blood Moderate H (NEGATIVE) Urine Nitrite Negative (NEGATIVE) Urine Bilirubin Negative (NEGATIVE) Urine Urobilinogen 4 H (NEGATIVE) mg/dL Ur Leukocyte Esterase Negative (NEGATIVE) Urine RBC 5-10 H (0-5) Urine WBC 0-5 (0-5) Ur Squamous Epith Cells Few H (NS,R,O) Urine Bacteria Few H (NS) Urine Mucus Few H (NS) Ethyl Alcohol (<0.03) % Meds: Medications Generic Name Dose Route Start Last Admin Trade Name Freq PRN Reason Stop Dose Admin Sodium Chloride 1,000 mls @ 125 mls/hr 02/26/19 01:15 02/26/19 02:03 Normal Saline IV 125 mls/hr ASDIRECTED SRINATH Administration Lactulose 20 gm 02/26/19 07:00 Cephulac PO 02/26/19 07:01 ONETIME ONE Discontinued Medications Generic Name Dose Route Start Last Admin Trade Name Cat PRN Reason Stop Dose Admin Lactulose 20 gm 02/26/19 01:13 Cephulac PO 02/26/19 01:14 ONETIME ONE - Re-Assessments/Exams Free Text/Narrative Re-Assessment/Exam: 02/26/19 00:50: The patient has remained vitally stable while in the emergency department. No fevers been manifested nor is there any history of fever. He is oriented to person, place and even time but he still seems somewhat foggy and vaguely disoriented. He still has some evidence of alcohol liver disease but no evidence of any acute infection at this time. Due to the patient's disorientation, I have strongly advised him to except admission for overnight observation. However, he adamantly refuses this at this time. The is supportive of him in this. I have strongly advised that he follow-up with his doctor at the clinic on Tuesday as scheduled with the ultrasound and also to follow-up with his doctor on that day as well. He should increase his fluid intake and he may come back at any time for reevaluation. 02/26/19 01:15: The patient now agrees to admission. I discussed with the lab in regard to ammonia level and they report that it will be back by 4 AM today. The patient will be admitted for continued observation. I will establish an IV give him normal saline and 125 mL per hour and I will also give him a dose of lactulose. 02/26/19 02:12: My concerns about the patient and the reason that he was admitted is in regard to recurrence of his disorientation. I have sent for an ammonia level to be done and I have artery treated him with a single dose of lactulose as I feel this is probably hepatic encephalopathy associated with his liver disease. However he has been set up to get an abdominal ultrasound through [facility] on 02/27/2019 and, although, his labs do not support an acute infectious process, SBP would be in the differential for his disorientation and he may need to get that ultrasound done sooner (during this hospital stay). I felt that discharge and attempt to follow this up as an outpatient would be associated with an undue risk for adverse outcome and would not be safe. I have placed admission orders and Dr. Rodrigues will assume care of patient at 7 AM on 02/26/2019. Departure - Departure Time of Disposition: 01:15 Disposition: Refer to Observation Condition: Fair Clinical Impression: Encephalopathy, Alcoholic liver disease Hypertension Qualifiers: Hypertension type: unspecified Qualified Code(s): I10 - Essential (primary) hypertension - Discharge Information - My Orders Last 24 Hours: My Active Orders 02/25/19 22:23 Orthostatic Vital Signs [RC] ASDIRECTED 02/26/19 01:15 Sodium Chloride 0.9% [Normal Saline] 1,000 ml IV ASDIRECTED 02/26/19 01:17 Admission Status [Patient Status] [ADT] Routine 02/26/19 01:35 AMMONIA, PLASMA Stat - Assessment/Plan Last 24 Hours: My Active Orders 02/25/19 22:23 Orthostatic Vital Signs [RC] ASDIRECTED 02/26/19 01:15 Sodium Chloride 0.9% [Normal Saline] 1,000 ml IV ASDIRECTED 02/26/19 01:17 Admission Status [Patient Status] [ADT] Routine 02/26/19 01:35 AMMONIA, PLASMA Stat
[2019-02-26] MEDS ORDERED: Lactulose Soln 10 GM/15 ML 30 ML UD Cup PO ONE ×2 (01:13→07:00)
[2019-02-26] MEDS ORDERED: Sodium Chloride 0.9% 1,000 ML IV SCH (01:15)
[2019-02-26] MEDS ORDERED: Lactulose Soln 10 GM/15 ML 15 ML UD Cup ONE (06:34)
--- NOTE | 2019-02-26 09:29 | PCM.HP.2 ---
H&P History of Present Illness - General Date of Service: 02/26/19 Admit Problem/Dx: Admission Diagnosis/Problem Admission Diagnosis/Problem Encephalopathy Source of Information: Patient, Old Records History Limitations: Reports: No Limitations - History of Present Illness Initial Comments - Free Text/Narative: This a 48-year-old male patient that was brought into the ER last night by his because he was having problems remembering and have an foggy thoughts. Says his been going on for a few months but it's been getting worse. He says he can't remember what is doing. In the middle of a sentence he'll forget what he is saying. Feels foggy. He has a history of alcohol abuse. He was drinking 16 large beers a day. He states the last 4 years is only drank occasionally. His states he's been drinking and quit 4 weeks ago. He's been in the hospital for similar condition. He says he was put on anti-hypertensive and sent home. He also smokes 5-10 cigarettes a day and smokes marijuana frequently. Is currently trying to find a job. He denies been in treatment. He he says he has little runny nose. He feels cold but no chills or fevers, no abdominal pain dysuria, pyuria, hematuria no chest pain, cough. He does feel short of breath when he exerts himself. He is supposed to have an ultrasound tomorrow in the clinic please not sure of what organ system. denies Pain Score (Numeric/FACES): 0 - Related Data Allergies/Adverse Reactions: Allergies Allergy/AdvReac Type Severity Reaction Status Date / Time No Known Allergies Allergy Verified 01/29/15 01:51 Home Medications: Home Meds diphenhydrAMINE HCl [Nighttime Sleep Aid] 25 mg PO BEDTIME PRN 01/29/19 [History ] Losartan/Hydrochlorothiazide [Losartan-HCTZ 50-12.5 MG] 1 tab PO DAILY 02/26/19 [History] Past Medical History Cardiovascular History: Reports: Hypertension Respiratory History: Reports: Other (See Below) Other Respiratory History: patient is a smoker since he was 11 years old. Gastrointestinal History: Reports: Cirrhosis (Versus alcohol-related liver disease) Other Musculoskeletal History: old L hand fx Psychiatric History: Reports: Addiction (I'll call abuse) Other Psychiatric History: Alcoholic. Endocrine/Metabolic History: Reports: Obesity/BMI 30+ - Past Surgical History Other Surgical History Comment: No previous surgeries. Social & Family History - Family History Family Medical History: Unobtainable - Tobacco Use Smoking Status *Q: Current Every Day Smoker Years of Tobacco use: 33 Packs/Tins Daily: 1 Used Tobacco, but Quit: No Second Hand Smoke Exposure: No - Caffeine Use Caffeine Use: Reports: None Other Caffeine Use: occasional - Alcohol Use Days Per Week of Alcohol Use: 7 Number of Drinks Per Day: 8 Total Drinks Per Week: 56 Date of Last Drink: 01/26/19 Time of Last Drink: 21:00 - Recreational Drug Use Recreational Drug Use: No Drug Use in Last 12 Months: Yes Recreational Drug Type: Reports: Marijuana/Hashish Recreational Drug Use Frequency: Not Used In Over 1 Month - Living Situation & Occupation Living situation: Reports: (He is here with his .) Occupation: Unemployed H&P Review of Systems - Review of Systems: Review Of Systems: See Below General: Reports: No Symptoms HEENT: Reports: Rhinitis Pulmonary: Reports: Shortness of Breath. Denies: Cough, Sputum, Hemoptysis Cardiovascular: Reports: No Symptoms Gastrointestinal: Reports: No Symptoms Genitourinary: Reports: No Symptoms Musculoskeletal: Reports: No Symptoms Skin: Reports: No Symptoms Psychiatric: Reports: Confusion Neurological: Reports: Tremors Hematologic/Lymphatic: Reports: No Symptoms Immunologic: Reports: No Symptoms Exam - Exam Exam: See Below - Vital Signs Vital Signs: Last Vital Signs Temp 98 F 02/26/19 06:05 Pulse 80 02/26/19 06:05 Resp 20 02/26/19 06:05 BP 151/92 H 02/26/19 06:05 Pulse Ox 100 02/26/19 06:05 Orthostatic Blood Pressure [ 165/105 Standing] Orthostatic Blood Pressure [ 158/92 Sitting] Orthostatic Blood Pressure [ 142/72 Supine] Weight: 355 lb 8 oz - Exam General: Alert, Oriented, Cooperative HEENT: PERRLA, Hearing Intact, Mucosa Moist & [place], Posterior Pharynx Clear, TMs Clear. No: Scleral Icterus Neck: Supple, Trachea Midline. No: Carotid Bruit Lungs: Clear to Auscultation, Normal Respiratory Effort. No: Crackles, Rales, Rhonchi Cardiovascular: Regular Rate, Regular Rhythm. No: Systolic Murmur, Diastolic Murmur GI/Abdominal Exam: Normal Bowel Sounds, Soft, Non-Tender, No Organomegaly, No Distention, No Abnormal Bruit, No Mass, Pelvis Stable Back Exam: Normal Inspection, Full Range of Motion Extremities: Normal Inspection, Normal Range of Motion, Non-Tender, No Pedal Edema Skin: Warm, Dry Neurological: Normal Speech, Normal Tone Neuro Extensive - Mental Status: Alert, Oriented x3, Normal Mood/Affect, Normal Cognition Psychiatric: Alert, Normal Affect, Normal Mood - Patient Data Lab Results Last 24 hrs: Laboratory Results - last 24 hr 02/25/19 02/25/19 02/25/19 Range/Units 22:37 22:37 22:37 WBC 3.8 L (4.5-12.0) X10-3/uL RBC 3.70 L (4.30-5.75) x10(6)uL Hgb 13.4 L (13.5-17.8) g/dL Hct 38.2 (30.0-51.3) % MCV 103.3 H (80-96) fL MCH 36.2 H (27.7-33.6) pg MCHC 35.0 (32.2-35.4) g/dL RDW 15.0 (11.5-15.5) % Plt Count 44 L (125-369) X10(3)uL MPV 9.6 (7.4-10.4) fL Add Manual Diff Yes Neutrophils % (Manual) 54 (46-82) % Lymphocytes % (Manual) 38 H (13-37) % Monocytes % (Manual) 5 (4-12) % Eosinophils % (Manual) 1 (0-5) % Basophils % (Manual) 2 (0-2) % Sodium 140 (135-145) mmol/L Potassium 3.6 (3.5-5.3) mmol/L Chloride 108 (100-110) mmol/L Carbon Dioxide 24 (21-32) mmol/L BUN 8 (7-18) mg/dL Creatinine 0.7 (0.70-1.30) mg/dL Est Cr Clr Drug Dosing TNP Estimated GFR (MDRD) > 60 (>60) BUN/Creatinine Ratio 11.4 (9-20) Glucose 136 H (80-116) mg/dL POC Glucose (80-116) mg/dL Calcium 8.3 L (8.6-10.2) mg/dL Magnesium 1.7 L (1.8-2.5) mg/dL Total Bilirubin 3.2 H (0.1-1.3) mg/dL AST 141 H D (5-25) IU/L ALT 98 H D (12-36) U/L Alkaline Phosphatase 290 H (56-112) IU/L Ammonia Total Protein 7.8 (6.0-8.0) g/dL Albumin 2.5 L (3.5-5.2) g/dL Globulin 5.3 g/dL Albumin/Globulin Ratio 0.5 Urine Color (YELLOW) Urine Appearance (CLEAR) Urine pH (5.0-6.5) Ur Specific [place] (1.010-1.025) Urine Protein (NEGATIVE) mg/dL Urine Glucose (UA) (NORMAL) mg/dL Urine Ketones (NEGATIVE) mg/dL Urine Occult Blood (NEGATIVE) Urine Nitrite (NEGATIVE) Urine Bilirubin (NEGATIVE) Urine Urobilinogen (NEGATIVE) mg/dL Ur Leukocyte Esterase (NEGATIVE) Urine RBC (0-5) Urine WBC (0-5) Ur Squamous Epith Cells (NS,R,O) Urine Bacteria (NS) Urine Mucus (NS) Ethyl Alcohol < 0.03 (<0.03) % 02/26/19 02/26/19 02/26/19 Range/Units 00:02 01:35 06:35 WBC (4.5-12.0) X10-3/uL RBC (4.30-5.75) x10(6)uL Hgb (13.5-17.8) g/dL Hct (30.0-51.3) % MCV (80-96) fL MCH (27.7-33.6) pg MCHC (32.2-35.4) g/dL RDW (11.5-15.5) % Plt Count (125-369) X10(3)uL MPV (7.4-10.4) fL Add Manual Diff Neutrophils % (Manual) (46-82) % Lymphocytes % (Manual) (13-37) % Monocytes % (Manual) (4-12) % Eosinophils % (Manual) (0-5) % Basophils % (Manual) (0-2) % Sodium (135-145) mmol/L Potassium (3.5-5.3) mmol/L Chloride (100-110) mmol/L Carbon Dioxide (21-32) mmol/L BUN (7-18) mg/dL Creatinine (0.70-1.30) mg/dL Est Cr Clr Drug Dosing Estimated GFR (MDRD) (>60) BUN/Creatinine Ratio (9-20) Glucose (80-116) mg/dL POC Glucose 116 (80-116) mg/dL Calcium (8.6-10.2) mg/dL Magnesium (1.8-2.5) mg/dL Total Bilirubin (0.1-1.3) mg/dL AST (5-25) IU/L ALT (12-36) U/L Alkaline Phosphatase (56-112) IU/L Ammonia 163 h Total Protein (6.0-8.0) g/dL Albumin (3.5-5.2) g/dL Globulin g/dL Albumin/Globulin Ratio Urine Color Yellow (YELLOW) Urine Appearance Clear (CLEAR) Urine pH 5.0 (5.0-6.5) Ur Specific [place] 1.010 (1.010-1.025) Urine Protein Negative (NEGATIVE) mg/dL Urine Glucose (UA) Normal (NORMAL) mg/dL Urine Ketones Negative (NEGATIVE) mg/dL Urine Occult Blood Moderate H (NEGATIVE) Urine Nitrite Negative (NEGATIVE) Urine Bilirubin Negative (NEGATIVE) Urine Urobilinogen 4 H (NEGATIVE) mg/dL Ur Leukocyte Esterase Negative (NEGATIVE) Urine RBC 5-10 H (0-5) Urine WBC 0-5 (0-5) Ur Squamous Epith Cells Few H (NS,R,O) Urine Bacteria Few H (NS) Urine Mucus Few H (NS) Ethyl Alcohol (<0.03) % Result Diagrams: 02/25/19 22:37 02/25/19 22:37 - Problem List (1) Diabetes 1.5, managed as type 2 SNOMED Code(s): 578296242 ICD Code: E13.9 - OTHER SPECIFIED DIABETES MELLITUS WITHOUT COMPLICATIONS Status: Acute Current Visit: Yes (2) Alcoholic liver disease SNOMED Code(s): 68164502 ICD Code: K70.9 - ALCOHOLIC LIVER DISEASE, UNSPECIFIED Status: Acute Current Visit: Yes (3) Encephalopathy SNOMED Code(s): 59278409 ICD Code: G93.40 - ENCEPHALOPATHY, UNSPECIFIED Status: Acute Current Visit: Yes (4) Hypertension SNOMED Code(s): 05609997 ICD Code: I10 - ESSENTIAL (PRIMARY) HYPERTENSION Status: Acute Current Visit: Yes Qualifiers: Hypertension type: unspecified Qualified Code(s): I10 - Essential (primary ) hypertension (5) Thrombocytopenia SNOMED Code(s): 967985844 ICD Code: D69.6 - THROMBOCYTOPENIA, UNSPECIFIED Status: Acute Current Visit: No Problem List Initiated/Reviewed/Updated: Yes Orders Last 24hrs: Active Orders 24 hr Category Date Time Status Admission Status [Patient Status] [ADT] Routine ADT 02/26/19 01:17 Active Blood Glucose Check, Bedside [RC] QIDACANDBED Care 02/26/19 02:04 Active Oxygen Therapy [RC] PRN Care 02/26/19 02:05 Active Pulse Oximetry [RC] PRN Care 02/26/19 02:06 Active Up With Assistance [RC] ASDIRECTED Care 02/26/19 02:04 Active VTE/DVT Education [RC] Per Unit Routine Care 02/26/19 02:05 Active Vital Signs [RC] Q4H Care 02/26/19 02:05 Active Consistent Carbohydrate Diet [DIET] Diet 02/26/19 Lunch Ordered GLYCOSYLATED HEMOGLOBIN,HGBA1C [CHEM] Routine Lab 02/26/19 09:17 Ordered Lactulose [Cephulac] Med 02/26/19 09:30 Ordered 20 gm PO Q2H Losartan/Hydrochlorothiazide [Losartan-HCTZ 50-12.5 MG] Med 02/27/19 09:00 Ordered 1 tab PO DAILY diphenhydrAMINE HCl [Nighttime Sleep Aid] Med 02/26/19 09:14 Ordered 25 mg PO BEDTIME PRN Convert IV to Saline Lock [OM.PC] Routine Oth 02/26/19 09:19 Ordered SCD [Sequential Compression Device] [OM.PC] Routine Oth 02/26/19 09:16 Ordered Resuscitation Status Routine Resus Stat 02/26/19 02:04 Ordered Medication Orders Non-Formulary Medication (Diphenhydramine Hcl [Nighttime Sleep Aid]) 25 mg PO BEDTIME PRN PRN Reason: Sleep Non-Formulary Medication (Losartan/Hydrochlorothiazide [Losartan-Hctz 50-12.5 Mg ]) 1 tab PO DAILY SRINATH Assessment/Plan Comment:: 1. admit to the hospital. 2. Ammonia level came back high so start lactulose 3. Accu-Cheks and get an A1c 4. For DVT prophylaxis SCD. The patient has thrombocytopenia so Lovenox contraindicated. 5. Diabetic diet 6. Up ad wallace. 7. Alcohol evaluation 8. Watch for signs of alcohol withdrawal 9. Check at the clinic to see what ultrasound he was going to have and possibly do it here depending on what it is. 10. Asked him about smoking patch he says he doesn't need one. 11. Recheck labs in the a.m.
[2019-02-26] MEDS ORDERED: diphenhydrAMINE 25 MG Cap PO PRN (09:34)
[2019-02-26 10:01] LABS: HEMOGLOBIN A1C 5.4 % (4.5-6.2)
[2019-02-26] MEDS: Hydrochlorothiazide 12.5 MG Cap PO SCH (10:38)
[2019-02-26] MEDS: Losartan 50 MG Tab PO SCH (10:38)
[2019-02-26] MEDS: Lactulose Soln 10 GM/15 ML 30 ML UD Cup PO SCH ×4 (10:38→21:52)
[2019-02-27 03:45] VITALS: PULSE 80
--- NOTE | 2019-02-27 07:37 | PCM.PN ---
- General Info Date of Service: 02/27/19 Admission Dx/Problem (Free Text): Patient is without complaints. Patient states his thinking now is clear. She is not forgetting things. He feels perfect and would like to be discharged. He has no chest pain, shortness of breath, shakes, tremors. - Patient Data Vitals - Most Recent: Last Vital Signs Temp 98.3 F 02/27/19 02:00 Pulse 80 02/27/19 02:00 Resp 18 02/27/19 02:00 BP 128/79 02/27/19 02:00 Pulse Ox 95 02/27/19 02:00 Orthostatic Blood Pressure [ 165/105 Standing] Orthostatic Blood Pressure [ 158/92 Sitting] Orthostatic Blood Pressure [ 142/72 Supine] Weight - Most Recent: 355 lb 8 oz Lab Results Last 24 Hours: Laboratory Results - last 24 hr 02/25/19 02/26/19 02/26/19 Range/Units 22:37 11:36 17:42 WBC (4.5-12.0) X10-3/uL RBC (4.30-5.75) x10(6)uL Hgb (13.5-17.8) g/dL Hct (30.0-51.3) % MCV (80-96) fL MCH (27.7-33.6) pg MCHC (32.2-35.4) g/dL RDW (11.5-15.5) % Plt Count (125-369) X10(3)uL MPV (7.4-10.4) fL Add Manual Diff Neutrophils % (Manual) (46-82) % Lymphocytes % (Manual) (13-37) % Monocytes % (Manual) (4-12) % Eosinophils % (Manual) (0-5) % Macrocytosis Sodium (135-145) mmol/L Potassium (3.5-5.3) mmol/L Chloride (100-110) mmol/L Carbon Dioxide (21-32) mmol/L BUN (7-18) mg/dL Creatinine (0.70-1.30) mg/dL Est Cr Clr Drug Dosing mL/min Estimated GFR (MDRD) (>60) BUN/Creatinine Ratio (9-20) Glucose (80-116) mg/dL POC Glucose 190 H 160 H (80-116) mg/dL Hemoglobin A1c 5.4 (4.5-6.2) % Calcium (8.6-10.2) mg/dL Total Bilirubin (0.1-1.3) mg/dL AST (5-25) IU/L ALT (12-36) U/L Alkaline Phosphatase (56-112) IU/L Total Protein (6.0-8.0) g/dL Albumin (3.5-5.2) g/dL Globulin g/dL Albumin/Globulin Ratio 02/26/19 02/27/19 02/27/19 Range/Units 21:58 06:35 06:35 WBC 3.7 L (4.5-12.0) X10-3/uL RBC 3.43 L (4.30-5.75) x10(6)uL Hgb 12.8 L (13.5-17.8) g/dL Hct 36.4 (30.0-51.3) % MCV 106.3 H (80-96) fL MCH 37.3 H (27.7-33.6) pg MCHC 35.1 (32.2-35.4) g/dL RDW 15.3 (11.5-15.5) % Plt Count 39 L (125-369) X10(3)uL MPV 9.6 (7.4-10.4) fL Add Manual Diff Yes Neutrophils % (Manual) 59 (46-82) % Lymphocytes % (Manual) 28 (13-37) % Monocytes % (Manual) 12 (4-12) % Eosinophils % (Manual) 1 (0-5) % Macrocytosis Moderate H Sodium 139 (135-145) mmol/L Potassium 3.8 (3.5-5.3) mmol/L Chloride 108 (100-110) mmol/L Carbon Dioxide 24 (21-32) mmol/L BUN 9 (7-18) mg/dL Creatinine 0.7 (0.70-1.30) mg/dL Est Cr Clr Drug Dosing 130.46 mL/min Estimated GFR (MDRD) > 60 (>60) BUN/Creatinine Ratio 12.9 (9-20) Glucose 128 H (80-116) mg/dL POC Glucose 146 H (80-116) mg/dL Hemoglobin A1c (4.5-6.2) % Calcium 7.9 L (8.6-10.2) mg/dL Total Bilirubin 3.3 H (0.1-1.3) mg/dL AST 137 H (5-25) IU/L ALT 97 H (12-36) U/L Alkaline Phosphatase 240 H (56-112) IU/L Total Protein 7.3 (6.0-8.0) g/dL Albumin 2.3 L (3.5-5.2) g/dL Globulin 5.0 g/dL Albumin/Globulin Ratio 0.5 Med Orders - Current: Current Medications Diphenhydramine HCl (Benadryl) 25 mg PO BEDTIME PRN PRN Reason: SLEEP Hydrochlorothiazide (Hydrochlorothiazide) 12.5 mg PO DAILY [facility] Last Admin: 02/26/19 10:38 Dose: 12.5 mg Lactulose (Cephulac) 20 gm PO TID [facility] Last Admin: 02/26/19 21:52 Dose: Not Given Losartan Potassium (Cozaar) 100 mg PO DAILY [facility] Discontinued Medications Sodium Chloride (Normal Saline) 1,000 mls @ 125 mls/hr IV ASDIRECTED [facility] Last Admin: 02/26/19 02:03 Dose: 125 mls/hr Lactulose (Cephulac) 20 gm PO ONETIME ONE Stop: 02/26/19 01:14 Last Admin: 02/26/19 02:50 Dose: Not Given Lactulose (Cephulac) 20 gm PO ONETIME ONE Stop: 02/26/19 07:01 Last Admin: 02/26/19 06:38 Dose: 20 gm Lactulose (Chronulac) Confirm Administered Dose 20 gm .ROUTE .STK-MED ONE Stop: 02/26/19 06:35 Last Admin: 02/26/19 06:41 Dose: Not Given Lactulose (Cephulac) 20 gm PO Q2H [facility] Last Admin: 02/26/19 14:12 Dose: 20 gm Losartan Potassium (Cozaar) 50 mg PO DAILY [facility] Last Admin: 02/26/19 10:38 Dose: 50 mg - Exam General: Alert, Oriented, Severe Distress HEENT: No: Scleral Icterus Lungs: Clear to Auscultation, Normal Respiratory Effort Cardiovascular: Regular Rate, Regular Rhythm, No Murmurs Extremities: Other (No tremors) Skin: Warm, Dry, Intact Neurological: Normal Gait Psy/Mental Status: Alert, Normal Affect, Normal Mood - Problem List & Annotations (1) Diabetes 1.5, managed as type 2 SNOMED Code(s): 752408612 Code(s): E13.9 - OTHER SPECIFIED DIABETES MELLITUS WITHOUT COMPLICATIONS Status: Acute Current Visit: Yes (2) Alcoholic liver disease SNOMED Code(s): 13254311 Code(s): K70.9 - ALCOHOLIC LIVER DISEASE, UNSPECIFIED Status: Acute Current Visit: Yes (3) Encephalopathy SNOMED Code(s): 50583160 Code(s): G93.40 - ENCEPHALOPATHY, UNSPECIFIED Status: Acute Current Visit : Yes Annotation/Comment:: Alcohol induced (4) Hypertension SNOMED Code(s): 86951262 Code(s): I10 - ESSENTIAL (PRIMARY) HYPERTENSION Status: Acute Current Visit: Yes Qualifiers: Hypertension type: unspecified Qualified Code(s): I10 - Essential (primary ) hypertension (5) Thrombocytopenia SNOMED Code(s): 087904257 Code(s): D69.6 - THROMBOCYTOPENIA, UNSPECIFIED Status: Acute Current Visit: No - Problem List Review Problem List Initiated/Reviewed/Updated: Yes - My Orders Last 24 Hours: My Active Orders 02/26/19 09:00 hydroCHLOROthiazide 12.5 mg PO DAILY 02/26/19 09:16 SCD [Sequential Compression Device] [OM.PC] Routine 02/26/19 09:19 Convert IV to Saline Lock [OM.PC] Routine 02/26/19 09:30 Consult for Substance Abuse [CONS] Routine 02/26/19 09:34 diphenhydrAMINE [Benadryl] 25 mg PO BEDTIME PRN 02/26/19 12:54 Neuro Check [RC] QSHIFT Neurovascular Check [RC] QSHIFT 02/26/19 21:00 Lactulose [Cephulac] 20 gm PO TID 02/26/19 Lunch Consistent Carbohydrate Diet [DIET] 02/27/19 07:33 Ready for Discharge [RC] PER UNIT ROUTINE 02/27/19 09:00 Losartan [Cozaar] 100 mg PO DAILY - Plan Plan:: 1. Discharge to home on lactulose. 2. Discuss smoking, alcohol and recreational drug cessation 3. Follow up with Dr. Mauricio in 1 week and his ultrasound liver at the end of this week.
--- NOTE | 2019-02-27 07:39 | PCM.DCSUM1 ---
Discharge Summary - Hospital Course Free Text/Narrative:: Hospital course-patient was admitted and started on lactulose. Patient had diarrhea stools and his mind cleared up quite nicely. His platelets, there functions remained abnormal. I looked in his old chart and they're about the same. He had no signs of withdrawal while he was here and no scleral icterus. Patient states he has to find some outpatient treatment to get his license back and is currently working on that. Discussed smoking cessation, alcohol cessation , smoking cessation. Patient has a renal ultrasound set up outpatient. We'll discharge him to home and have him see Dr. Sierra 1 week with his ultrasound. Send him home on the lactulose 3 times a day. Brief History: This a 48-year-old male patient that was brought into the ER last night by his because he was having problems remembering and have an foggy thoughts. Says his been going on for a few months but it's been getting worse. He says he can't remember what is doing. In the middle of a sentence he' ll forget what he is saying. Feels foggy. He has a history of alcohol abuse. He was drinking 16 large beers a day. He states the last 4 years is only drank occasionally. His states he's been drinking and quit 4 weeks ago. He's been in the hospital for similar condition. He says he was put on anti- hypertensive and sent home. He also smokes 5-10 cigarettes a day and smokes marijuana frequently. Is currently trying to find a job. He denies been in treatment. He he says he has little runny nose. He feels cold but no chills or fevers, no abdominal pain dysuria, pyuria, hematuria no chest pain, cough. He does feel short of breath when he exerts himself. He is supposed to have an ultrasound tomorrow in the clinic please not sure of what organ system. Diagnosis: Stroke: No - Discharge Data Discharge Date: 02/27/19 Discharge Disposition: Home, Self-Care 01 Condition: Fair - Discharge Diagnosis/Problem(s) (1) Diabetes 1.5, managed as type 2 SNOMED Code(s): 414559027 ICD Code: E13.9 - OTHER SPECIFIED DIABETES MELLITUS WITHOUT COMPLICATIONS Status: Acute Current Visit: Yes (2) Alcoholic liver disease SNOMED Code(s): 29852841 ICD Code: K70.9 - ALCOHOLIC LIVER DISEASE, UNSPECIFIED Status: Acute Current Visit: Yes (3) Encephalopathy SNOMED Code(s): 31795758 ICD Code: G93.40 - ENCEPHALOPATHY, UNSPECIFIED Status: Acute Current Visit: Yes Problem Details: Alcohol induced (4) Hypertension SNOMED Code(s): 02168479 ICD Code: I10 - ESSENTIAL (PRIMARY) HYPERTENSION Status: Acute Current Visit: Yes Qualifiers: Hypertension type: unspecified Qualified Code(s): I10 - Essential (primary ) hypertension (5) Thrombocytopenia SNOMED Code(s): 714689037 ICD Code: D69.6 - THROMBOCYTOPENIA, UNSPECIFIED Status: Acute Current Visit: No - Patient Summary/Data Consults: Consultations 02/26/19 09:30 Consult for Substance Abuse [CONS] Routine - Patient Instructions Diet: Diabetic Diet Activity: As Tolerated Driving: May Drive Today Showering/Bathing: May Shower Other/Special Instructions: 1. Recheck with Dr. Mauricio in 1 week. 2. Ultrasound in 3 days her now the set up a [facility]. 3. Patient is going to set her some outpatient treatment and [facility]. 4. Discuss alcohol cessation, smoking cessation and recreational drug cessation. 5. CBC, PT, INR and Chem-12 at the next appointment with Dr. Mauricio. - Discharge Plan Prescriptions/Med Rec: Lactulose [Cephulac] 20 gm PO TID #90 cup Home Medications: Home Meds diphenhydrAMINE HCl [Nighttime Sleep Aid] 25 mg PO BEDTIME PRN 01/29/19 [History ] Losartan/Hydrochlorothiazide [Losartan-HCTZ 50-12.5 MG] 1 tab PO DAILY 02/26/19 [History] Lactulose [Cephulac] 20 gm PO TID #90 cup 02/27/19 [Rx] Patient Handouts: Hepatic Encephalopathy, Urinary Tract Infection, Adult, Easy- to-Read, Fall Prevention in Hospitals, Adult, Venous Thromboembolism Prevention Forms: ED Department Discharge Referrals: PCP,None [Primary Care Provider] - - Discharge Summary/Plan Comment DC Time >30 min.: No - Patient Data Vitals - Most Recent: Last Vital Signs Temp 98.3 F 02/27/19 02:00 Pulse 80 02/27/19 02:00 Resp 18 02/27/19 02:00 BP 128/79 02/27/19 02:00 Pulse Ox 95 02/27/19 02:00 Orthostatic Blood Pressure [ 165/105 Standing] Orthostatic Blood Pressure [ 158/92 Sitting] Orthostatic Blood Pressure [ 142/72 Supine] Weight - Most Recent: 355 lb 8 oz Lab Results - Last 24 hrs: Laboratory Results - last 24 hr 02/25/19 02/26/19 02/26/19 Range/Units 22:37 11:36 17:42 WBC (4.5-12.0) X10-3/uL RBC (4.30-5.75) x10(6)uL Hgb (13.5-17.8) g/dL Hct (30.0-51.3) % MCV (80-96) fL MCH (27.7-33.6) pg MCHC (32.2-35.4) g/dL RDW (11.5-15.5) % Plt Count (125-369) X10(3)uL MPV (7.4-10.4) fL Add Manual Diff Neutrophils % (Manual) (46-82) % Lymphocytes % (Manual) (13-37) % Monocytes % (Manual) (4-12) % Eosinophils % (Manual) (0-5) % Macrocytosis Sodium (135-145) mmol/L Potassium (3.5-5.3) mmol/L Chloride (100-110) mmol/L Carbon Dioxide (21-32) mmol/L BUN (7-18) mg/dL Creatinine (0.70-1.30) mg/dL Est Cr Clr Drug Dosing mL/min Estimated GFR (MDRD) (>60) BUN/Creatinine Ratio (9-20) Glucose (80-116) mg/dL POC Glucose 190 H 160 H (80-116) mg/dL Hemoglobin A1c 5.4 (4.5-6.2) % Calcium (8.6-10.2) mg/dL Total Bilirubin (0.1-1.3) mg/dL AST (5-25) IU/L ALT (12-36) U/L Alkaline Phosphatase (56-112) IU/L Total Protein (6.0-8.0) g/dL Albumin (3.5-5.2) g/dL Globulin g/dL Albumin/Globulin Ratio 0902/27/19 02/27/19 Range/Units 21:58 06:35 06:35 WBC 3.7 L (4.5-12.0) X10-3/uL RBC 3.43 L (4.30-5.75) x10(6)uL Hgb 12.8 L (13.5-17.8) g/dL Hct 36.4 (30.0-51.3) % MCV 106.3 H (80-96) fL MCH 37.3 H (27.7-33.6) pg MCHC 35.1 (32.2-35.4) g/dL RDW 15.3 (11.5-15.5) % Plt Count 39 L (125-369) X10(3)uL MPV 9.6 (7.4-10.4) fL Add Manual Diff Yes Neutrophils % (Manual) 59 (46-82) % Lymphocytes % (Manual) 28 (13-37) % Monocytes % (Manual) 12 (4-12) % Eosinophils % (Manual) 1 (0-5) % Macrocytosis Moderate H Sodium 139 (135-145) mmol/L Potassium 3.8 (3.5-5.3) mmol/L Chloride 108 (100-110) mmol/L Carbon Dioxide 24 (21-32) mmol/L BUN 9 (7-18) mg/dL Creatinine 0.7 (0.70-1.30) mg/dL Est Cr Clr Drug Dosing 130.46 mL/min Estimated GFR (MDRD) > 60 (>60) BUN/Creatinine Ratio 12.9 (9-20) Glucose 128 H (80-116) mg/dL POC Glucose 146 H (80-116) mg/dL Hemoglobin A1c (4.5-6.2) % Calcium 7.9 L (8.6-10.2) mg/dL Total Bilirubin 3.3 H (0.1-1.3) mg/dL AST 137 H (5-25) IU/L ALT 97 H (12-36) U/L Alkaline Phosphatase 240 H (56-112) IU/L Total Protein 7.3 (6.0-8.0) g/dL Albumin 2.3 L (3.5-5.2) g/dL Globulin 5.0 g/dL Albumin/Globulin Ratio 0.5 Med Orders - Current: Current Medications Diphenhydramine HCl (Benadryl) 25 mg PO BEDTIME PRN PRN Reason: SLEEP Hydrochlorothiazide (Hydrochlorothiazide) 12.5 mg PO DAILY [facility] Last Admin: 02/26/19 10:38 Dose: 12.5 mg Lactulose (Cephulac) 20 gm PO TID [facility] Last Admin: 02/26/19 21:52 Dose: Not Given Losartan Potassium (Cozaar) 100 mg PO DAILY [facility] Discontinued Medications Sodium Chloride (Normal Saline) 1,000 mls @ 125 mls/hr IV ASDIRECTED [facility] Last Admin: 02/26/19 02:03 Dose: 125 mls/hr Lactulose (Cephulac) 20 gm PO ONETIME ONE Stop: 02/26/19 01:14 Last Admin: 02/26/19 02:50 Dose: Not Given Lactulose (Cephulac) 20 gm PO ONETIME ONE Stop: 02/26/19 07:01 Last Admin: 02/26/19 06:38 Dose: 20 gm Lactulose (Chronulac) Confirm Administered Dose 20 gm .ROUTE .STK-MED ONE Stop: 02/26/19 06:35 Last Admin: 02/26/19 06:41 Dose: Not Given Lactulose (Cephulac) 20 gm PO Q2H [facility] Last Admin: 02/26/19 14:12 Dose: 20 gm Losartan Potassium (Cozaar) 50 mg PO DAILY [facility] Last Admin: 02/26/19 10:38 Dose: 50 mg
[2019-02-27] MEDS: Hydrochlorothiazide 12.5 MG Cap PO SCH (07:50)
[2019-02-27] MEDS: Lactulose Soln 10 GM/15 ML 30 ML UD Cup PO SCH (07:50)
[2019-02-27] MEDS: Losartan 50 MG Tab PO SCH (07:51)
[2019-02-27 07:59] VITALS: BP 158/86
[2019-02-27] MEDS ORDERED: Losartan 100 MG Tab PO SCH (09:00)
== END 2019-02-27 08:05 | disposition home or self-care (01) ==
LOC: FB.ED 21:23 → FB.MS 02-26 01:44
PROVIDERS: ADMIT Emergency Medicine; ATTEND Family Medicine
DX: G93.40 Encephalopathy, unspecified (principal); E13.9 Other specified diabetes mellitus without complications; K70.9 Alcoholic liver disease, unspecified; I10 Essential (primary) hypertension; D69.6 Thrombocytopenia, unspecified; F17.210 Nicotine dependence, cigarettes, uncomplicated; E66.9 Obesity, unspecified; Z79.899 Other long term (current) drug therapy; Z68.43 Body mass index [BMI] 50.0-59.9, adult
CPT/HCPCS: 36415; 80053; 80320; 81001; 82140; 82962; 83036; 83735; 85025; 94760; 96360; 96361; 99285; A9270; G0378; J7030; G0480

== ENCOUNTER 2019-04-14 10:55 | Inpatient (IN) | payer SELFPAY ==
--- NOTE | 2019-04-14 11:20 | EDM.PDOC ---
ED HPI GENERAL MEDICAL PROBLEM - General Chief Complaint: General Stated Complaint: SOB Time Seen by Provider: 04/14/19 11:18 Source of Information: Reports: Patient History Limitations: Reports: No Limitations - History of Present Illness INITIAL COMMENTS - FREE TEXT/NARRATIVE: 49-year-old male with complaints of bilateral feet swelling, abdominal swelling , shortness of breath and fatigue that has been ongoing for the past month that seems to be somewhat worse today. He reports that he gained 20 pounds between his last 2 clinic visits with really no change in his eating habits. In fact, he reports that he has been eating less than he normally would. He also tells me that he has been having nausea with vomiting. He had vomiting 1 this morning and one episode of vomiting last night. He has been able to drink liquids. He also reports that his urine output has decreased. He has been taking his antihypertensives in the past but over the past few days has not been taking them because he did not have the money. He has been taking lactulose one time a day and he reports that he has been having diarrhea anymore and in fact he has not had a bowel movement for several days. There have been no reports of disorientation but the reports that he is mostly sedentary at home. He reports that the swelling in his legs had been coming and going but now over the past week she has noticed that it has been there even after resting and elevating his legs. He denies any pain except in his legs when they are hanging down and discomfort in his nominal wall and legs secondary to them being swollen. He reports this is mild to moderate. No fevers or chills. Dysuria or hematuria. No blood in his bowel movements. There are no other associated signs or symptoms. There are no other modifying factors. Onset: Other (Ongoing for the past month or longer but seems to be worsening over the past week) Duration: Getting Worse Location: Reports: Abdomen, Lower Extremity, Left, Lower Extremity, Right Quality: Reports: Ache, Pressure Severity: Moderate Improves with: Reports: Rest (And elevation of his legs somewhat) Worsens with: Reports: Other (Walking), Movement Context: Reports: Other (As above) Associated Symptoms: Reports: Malaise, Nausea/Vomiting, Shortness of Breath, Weakness Treatments DRUG CLERK: Reports: Other (see below) (Nothing except his home medications and he has not been taking his blood pressure medication because he can't afford it for the past few days.) - Related Data Allergies Allergy/AdvReac Type Severity Reaction Status Date / Time No Known Allergies Allergy Verified 01/29/15 01:51 Home Meds: Home Meds diphenhydrAMINE HCl [Nighttime Sleep Aid] 25 mg PO BEDTIME PRN 01/29/19 [History ] Losartan/Hydrochlorothiazide [Losartan-HCTZ 50-12.5 MG] 1 tab PO DAILY 02/26/19 [History] Lactulose [Cephulac] 20 gm PO TID #90 cup 02/27/19 [Rx] Atenolol/Chlorthalidone [Atenolol-Chlorthalidone 50-25] 1 tab PO DAILY 04/14/19 [History] Past Medical History Cardiovascular History: Reports: Hypertension Gastrointestinal History: Reports: Cirrhosis Psychiatric History: Reports: Addiction Other Psychiatric History: Alcoholic. Endocrine/Metabolic History: Reports: Obesity/BMI 30+ - Past Surgical History Other Surgical History Comment: No previous surgeries. Social & Family History - Tobacco Use Smoking Status *Q: Current Every Day Smoker Years of Tobacco use: 30 Packs/Tins Daily: 0.5 - Caffeine Use Caffeine Use: Reports: None Other Caffeine Use: occasional - Alcohol Use Alcohol Use History: Yes Alcohol Use Comment: States last alcohol use was in February. He has had heavy alcohol use in the past. - Living Situation & Occupation Living situation: Reports: (He is here with his .), with Spouse Occupation: Unemployed ED ROS GENERAL - Review of Systems Review Of Systems: See Below Constitutional: Reports: Weakness, Fatigue, Weight Gain HEENT: Reports: No Symptoms Respiratory: Reports: Shortness of Breath Cardiovascular: Reports: Dyspnea on Exertion, Lightheadedness GI/Abdominal: Reports: Distension, Nausea, Vomiting : Reports: Other (Decreased urine output) Musculoskeletal: Reports: Other (Swelling in both lower extremities) Skin: Reports: No Symptoms Neurological: Reports: Dizziness Hematologic/Lymphatic: Reports: Easy Bruising Immunologic: Reports: No Symptoms ED EXAM, GENERAL - Physical Exam Exam: See Below Exam Limited By: No Limitations General Appearance: Alert, No Apparent Distress, Obese Eye Exam: Bilateral Eye: EOMI, PERRL, Other (Sclerae are icteric) Ears: Normal External Exam, Hearing Grossly Normal Ear Exam: Bilateral Ear: Auricle Normal Nose: Normal Inspection, Normal Mucosa, No Blood Throat/Mouth: Normal Oropharynx, Normal Voice, No Airway Compromise Head: Atraumatic, Normocephalic Neck: Normal Inspection, Supple, Non-Tender, Full Range of Motion Respiratory/Chest: No Respiratory Distress, Lungs Clear, No Accessory Muscle Use , Chest Non-Tender Cardiovascular: Normal Peripheral Pulses, No Gallop, No Murmur, Tachycardia ( Mildly) Peripheral Pulses: 2+: Radial (L), Radial (R), Dorsalis Pedis (L), Dorsalis Pedis (R) GI/Abdominal: Normal Bowel Sounds, Non-Tender, Distended, Other (Edema in the abdominal wall and marked distention) Extremities: Normal Range of Motion, Normal Capillary Refill, Pedal Edema Neurological: Alert, Oriented, CN II-XII Intact, Normal Cognition, No Motor/ Sensory Deficits Skin Exam: Warm, Dry, Intact, Normal Color, No Rash EKG INTERPRETATION EKG Date: 04/14/19 Time: 11:38 Rhythm: NSR Rate (Beats/Min): 95 Collins: Normal P-Wave: Present QRS: Normal (Ears poor R-wave progression.) ST-T: Other (Nonspecific ST-T changes) QT: Normal Comparison: No Change (No real change from EKG performed on 01/29/2019.) EKG Interpretation Comments: He has evidence of LVH. Course - Vital Signs Last Recorded V/S: Last Vital Signs Temp 36.6 C 04/14/19 10:55 Pulse 105 H 04/14/19 10:55 Resp 20 04/14/19 10:55 BP 156/84 H 04/14/19 10:55 Pulse Ox 100 04/14/19 10:55 - Orders/Labs/Meds Orders: Active Orders 24 hr Category Date Time Status Patient Status Manage Transfer [TRANSFER] Routine ADT 04/14/19 13:34 Ordered EKG Documentation Completion [RC] ASDIRECTED Care 04/14/19 11:33 Active Chest 2V [CR] Stat Exams 04/14/19 11:33 Taken DRUG SCREEN, URINE ALERE [URCHEM] Stat Lab 04/14/19 11:33 Ordered UA W/MICROSCOPIC [URIN] Stat Lab 04/14/19 11:33 Ordered Sodium Chloride 0.9% [Normal Saline] 250 ml Med 04/14/19 12:45 Active IV ASDIRECTED Sodium Chloride 0.9% [Saline Flush] Med 04/14/19 11:33 Active 10 ml FLUSH ASDIRECTED PRN Peripheral IV Insertion Adult [OM.PC] Routine Oth 04/14/19 11:33 Ordered Code Status [Resuscitation Status] Stat Resus Stat 04/14/19 13:36 Ordered EKG 12 Lead [EK] Routine Ther 04/14/19 11:33 Ordered Medication Orders Sodium Chloride (Normal Saline) 250 mls @ 999 mls/hr IV ASDIRECTED SRINATH Last Admin: 04/14/19 12:54 Dose: 999 mls/hr Sodium Chloride (Saline Flush) 10 ml FLUSH ASDIRECTED PRN PRN Reason: Keep Vein Open Last Admin: 04/14/19 12:02 Dose: 10 ml Labs: Laboratory Tests 04/14/19 04/14/19 04/14/19 Range/Units 11:52 11:52 11:52 WBC 5.3 (4.5-12.0) X10-3/uL RBC 3.53 L (4.30-5.75) x10(6)uL Hgb 12.8 L (13.5-17.8) g/dL Hct 37.8 (30.0-51.3) % MCV 107.0 H (80-96) fL MCH 36.2 H (27.7-33.6) pg MCHC 33.9 (32.2-35.4) g/dL RDW 15.6 H (11.5-15.5) % Plt Count 58 L (125-369) X10(3)uL MPV 8.8 (7.4-10.4) fL Neut % (Auto) 58.7 (46-82) % Lymph % (Auto) 24.2 (13-37) % Addison % (Auto) 13.5 H (4-12) % Eos % (Auto) 3 (1.0-5.0) % Baso % (Auto) 1 (0-2) % Neut # (Auto) 3.2 (1.6-8.3) # Lymph # (Auto) 1.3 (0.6-5.0) # Addison # (Auto) 0.7 (0.0-1.3) # Eos # (Auto) 0.1 (0.0-0.8) # Baso # (Auto) 0.0 (0.0-0.2) # PT (8.7-11.1) INR (0.89-1.13) Sodium 139 (135-145) mmol/L Potassium 4.0 (3.5-5.3) mmol/L Chloride 106 (100-110) mmol/L Carbon Dioxide 24 (21-32) mmol/L BUN 16 (7-18) mg/dL Creatinine 2.3 H* (0.70-1.30) mg/dL Est Cr Clr Drug Dosing 39.28 mL/min Estimated GFR (MDRD) 31 L (>60) BUN/Creatinine Ratio 7.0 L (9-20) Glucose 118 H (80-116) mg/dL Calcium 8.6 (8.6-10.2) mg/dL Magnesium 1.9 (1.8-2.5) mg/dL Total Bilirubin 8.7 H (0.1-1.3) mg/dL AST 106 H D (5-25) IU/L ALT 89 H (12-36) U/L Alkaline Phosphatase 206 H (56-112) IU/L Troponin I 0.026 (<0.017-0.056) ng/mL NT-Pro-B Natriuret Pep 75 (<=125) pg/mL Total Protein 6.8 (6.0-8.0) g/dL Albumin 2.0 L (3.5-5.2) g/dL Globulin 4.8 g/dL Albumin/Globulin Ratio 0.4 Ethyl Alcohol < 0.03 (<0.03) % 04/14/ Range/Units 12:45 WBC (4.5-12.0) X10-3/uL RBC (4.30-5.75) x10(6)uL Hgb (13.5-17.8) g/dL Hct (30.0-51.3) % MCV (80-96) fL MCH (27.7-33.6) pg MCHC (32.2-35.4) g/dL RDW (11.5-15.5) % Plt Count (125-369) X10(3)uL MPV (7.4-10.4) fL Neut % (Auto) (46-82) % Lymph % (Auto) (13-37) % Addison % (Auto) (4-12) % Eos % (Auto) (1.0-5.0) % Baso % (Auto) (0-2) % Neut # (Auto) (1.6-8.3) # Lymph # (Auto) (0.6-5.0) # Addison # (Auto) (0.0-1.3) # Eos # (Auto) (0.0-0.8) # Baso # (Auto) (0.0-0.2) # PT 16.1 H (8.7-11.1) INR 1.67 H (0.89-1.13) Sodium (135-145) mmol/L Potassium (3.5-5.3) mmol/L Chloride (100-110) mmol/L Carbon Dioxide (21-32) mmol/L BUN (7-18) mg/dL Creatinine (0.70-1.30) mg/dL Est Cr Clr Drug Dosing mL/min Estimated GFR (MDRD) (>60) BUN/Creatinine Ratio (9-20) Glucose (80-116) mg/dL Calcium (8.6-10.2) mg/dL Magnesium (1.8-2.5) mg/dL Total Bilirubin (0.1-1.3) mg/dL AST (5-25) IU/L ALT (12-36) U/L Alkaline Phosphatase (56-112) IU/L Troponin I (<0.017-0.056) ng/mL NT-Pro-B Natriuret Pep (<=125) pg/mL Total Protein (6.0-8.0) g/dL Albumin (3.5-5.2) g/dL Globulin g/dL Albumin/Globulin Ratio Ethyl Alcohol (<0.03) % Meds: Medications Generic Name Dose Route Start Last Admin Trade Name Freq PRN Reason Stop Dose Admin Sodium Chloride 250 mls @ 999 mls/hr 04/14/19 12:45 04/14/19 12:54 Normal Saline IV 999 mls/hr ASDIRECTED SRINATH Administration Sodium Chloride 10 ml 04/14/19 11:33 04/14/19 12:02 Saline Flush FLUSH 10 ml ASDIRECTED PRN Administration Keep Vein Open - Radiology Interpretation Free Text/Narrative:: Chest x-ray shows no acute disease. - Re-Assessments/Exams Free Text/Narrative Re-Assessment/Exam: 04/14/19 13:20: The patient's chest x-ray was clear. His hemoglobin was stable. His platelet count was low but stable. Creatinine was 2.3 which is definitely up from 0.7 which it was previously. His bilirubin has risen from the 3 range to 8.7. Patient has evidence of worsening cirrhosis with now an acute kidney injury and concern for developing hepatorenal syndrome. He has anasarca with worsening ascites and also appears to be clinically dehydrated. I feel the patient will need admission for both IV hydration and some diuresis to attempt to get the anasarca reduced. His renal function will also need to be closely monitored during this period. I will discuss the patient's case with Dr. Cruz. I had discussed this with the patient and he would be in agreement with this plan. 04/14/19 13:35:: I discussed the patient's case with Dr. Cruz and he will admit the patient. The patient will be transferred to the floor now and Dr. Cruz will see the patient. Departure - Departure Time of Disposition: 13:45 Disposition: Refer to Observation Condition: Fair Clinical Impression: Anasarca, Acute kidney injury, Hepatic failure due to alcoholism Cirrhosis of liver with ascites Qualifiers: Hepatic cirrhosis type: alcoholic cirrhosis Qualified Code(s): K70.31 - Alcoholic cirrhosis of liver with ascites - Discharge Information Referrals: Antwan Carter MD [Primary Care Provider] - Forms: ED Department Discharge - My Orders Last 24 Hours: My Active Orders 04/14/19 11:33 EKG Documentation Completion [RC] ASDIRECTED Chest 2V [CR] Stat DRUG SCREEN, URINE ALERE [URCHEM] Stat UA W/MICROSCOPIC [URIN] Stat Sodium Chloride 0.9% [Saline Flush] 10 ml FLUSH ASDIRECTED PRN Peripheral IV Insertion Adult [OM.PC] Routine EKG 12 Lead [EK] Routine 04/14/19 12:45 Sodium Chloride 0.9% [Normal Saline] 250 ml IV ASDIRECTED 04/14/19 13:34 Patient Status Manage Transfer [TRANSFER] Routine 04/14/19 13:36 Code Status [Resuscitation Status] Stat - Assessment/Plan Last 24 Hours: My Active Orders 04/14/19 11:33 EKG Documentation Completion [RC] ASDIRECTED Chest 2V [CR] Stat DRUG SCREEN, URINE ALERE [URCHEM] Stat UA W/MICROSCOPIC [URIN] Stat Sodium Chloride 0.9% [Saline Flush] 10 ml FLUSH ASDIRECTED PRN Peripheral IV Insertion Adult [OM.PC] Routine EKG 12 Lead [EK] Routine 04/14/19 12:45 Sodium Chloride 0.9% [Normal Saline] 250 ml IV ASDIRECTED 04/14/19 13:34 Patient Status Manage Transfer [TRANSFER] Routine 04/14/19 13:36 Code Status [Resuscitation Status] Stat
[2019-04-14] MEDS: Sodium Chloride 0.9% 10 ML Syringe FLUSH PRN ×2 (12:02→14:15)
[2019-04-14] MEDS ORDERED: Sodium Chloride 0.9% 250 ML IV SCH (12:45)
[2019-04-14] MEDS: Sodium Chloride 0.9% 1,000 ML IV SCH (14:15)
[2019-04-14] MEDS ORDERED: Furosemide 40 MG/4 ML VIAL IVPUSH ONE (15:31)
[2019-04-14] MEDS ORDERED: Phytonadione ORAL 5mg/5ml Soln Simple Syrup U/D PO ONE (15:42)
[2019-04-14] MEDS ORDERED: Lactulose Soln 10 GM/15 ML 30 ML UD Cup PO SCH (15:45)
[2019-04-14] MEDS ORDERED: Thiamine 200 MG/2 ML MDV IVPUSH ONE (16:00)
[2019-04-14] MEDS ORDERED: Lactulose Soln 10 GM/15 ML 30 ML UD Cup PO PRN (16:08)
--- NOTE | 2019-04-14 16:26 | HP ---
ADMISSION DATE: 04/14/2019 History is from the patient as well as his old hospital chart. CHIEF COMPLAINT: Swelling and shortness of breath. HISTORY OF PRESENT ILLNESS: Mr. Vila is a 49-year-old man from [place] with a history of alcoholism, obesity, type 2 diabetes, and hypertension. He was hospitalized in January at [facility] for confusion and disorientation due to hepatic encephalopathy from his alcoholism. He states that he quit drinking back in February and has not had any drinks since that. Over the past 2 months, however, he has had intermittent swelling of his lower extremities that has never gone completely away, and over the past few days has gotten quite a bit worse. He was seen by Dr. Lara in the clinic on 04/12 and started on furosemide 40 mg daily. Rosalino has not picked it up, however, because he does not have money to buy it. He states that he has had leg swelling that is getting worse. He has poor sleep at night, only able to sleep 2 or 3 hours at a time without sitting up. His abdominal girth has increased. He has not had fever, chills, sweats, or symptoms of infection. No cough, chest pain, palpitations, abdominal pain. He has not had a bowel movement for several days. He got some lactulose from the clinic and did have one stool yesterday. He was seen in the emergency room and is now admitted for acute care. PAST MEDICAL HISTORY: Long-term alcoholism. He went through AA in 1993 and was sober for many years. He resumed drinking back in approximately October 2018, after losing his job. He has not had history of seizures, DTs, and no prior heart or kidney problems. MEDICATIONS: 1. Lactulose 15 mL daily. He went for a long time without this, however. 2. He also has been on Tenoretic in the past that was stopped in the clinic last week. 3. Losartan HCT. He has run out of these and has not taken them in the last few days either. REVIEW OF SYSTEMS: No seizure or syncope. He has had significant weight gain of about 25 pounds in the past couple of months. No skin rash. No recent changes in hearing or vision. No sore throat. No cough. No chest pain or palpitations. No abdominal pain or diarrhea. He has a swelling as mentioned. No joint inflammation. PHYSICAL EXAMINATION: GENERAL: He is alert and a good historian. VITAL SIGNS: Blood pressure 137/49, pulse 70 and regular, respirations 20, temperature 97.7, O2 saturation 100% on room air. SKIN: Anicteric. Warm, dry. No rash. HEENT: Shows mouth to be dry. LUNGS: Clear. HEART: Regular without murmur or gallop. ABDOMEN: Obese, soft, nontender. No organomegaly is felt. He does have thick abdominal edema. No fluid wave noted, but obvious abdominal distention suggesting ascites. EXTREMITIES: 2+ edema to the mid tibias. Intact dorsalis pedis pulses. LABORATORY DATA: Hemoglobin 12.8, MCV 107, platelets 58, white count 5300. INR 1.67. BUN 16, creatinine 2.3, sodium 139, potassium 4.0, glucose 118, bilirubin 8.7, AST 106, ALT 89, alkaline phosphatase 206. ProBNP 75. Urinalysis shows occult blood and moderate urobilinogen. Serum alcohol zero. ASSESSMENT: 1. A 49-year-old man with history of cirrhosis, now with increasing ascites, edema, and markedly elevated creatinine. 2. Hypertension. 3. Type 2 diabetes. 4. Obesity. PLAN: He is admitted to the hospital. We will begin IV normal saline at 75 mL/h to maintain his intravascular volume. I will also give him a dose of IV Lasix. Resume his lactulose. Re-evaluate his renal function and followup labs in the a.m. /[id number] RO/MODL
[2019-04-15] MEDS: Sodium Chloride 0.9% 1,000 ML IV SCH (02:28)
[2019-04-15] MEDS ORDERED: Furosemide 40 MG/4 ML VIAL IVPUSH ONE (08:50)
[2019-04-15] MEDS: Spironolactone 50 MG Tab PO SCH (09:38)
[2019-04-15] MEDS ORDERED: Furosemide 80 MG Tab PO SCH (12:00)
[2019-04-16] MEDS ORDERED: Metolazone 2.5 MG Tab PO SCH (07:30)
[2019-04-16] MEDS ORDERED: Furosemide 80 MG Tab PO SCH (08:00)
[2019-04-16 08:04] VITALS: BP 138/56; PULSE 82
[2019-04-16] MEDS: Spironolactone 50 MG Tab PO SCH (08:57)
--- NOTE | 2019-04-16 09:00 | PN ---
DATE SEEN: 04/16/2019 HISTORY: Rosalino is a 49-year-old man who was admitted with anasarca, markedly elevated creatinine, and history of alcoholism with ascites, now dry for the last month. On admission, he was short of breath. He had marked edema of his legs, and his creatinine was 2.3. He was given 12 hours of IV normal saline. His creatinine improved to 2.1. He was given IV Lasix. He states he has been diuresing a large amount; however, his weight has only dropped 1 pound. PHYSICAL EXAMINATION: GENERAL: This morning, he is examined in his chair. He states that he feels better and is breathing easier. VITAL SIGNS: Blood pressure 146/59, pulse 76, respirations 18, O2 saturation 99% on room air, temperature 97.8. SKIN: Shows no rash. HEENT: Shows mouth to be dry. LUNGS: Clear to the bases. HEART: Regular without murmur or gallop. ABDOMEN: Obese, soft. Abdominal wall edema is present. EXTREMITIES: Show 2+ edema to the upper tibias. LABORATORY DATA: Hemoglobin 10.6, white count 4.6, platelets 42,000. Creatinine is 1.7. ALT, AST, alkaline phosphatase all mildly elevated. ASSESSMENT: 1. Anasarca secondary to acute renal insufficiency. 2. Cirrhosis with ascites and anasarca. 3. Obesity. 4. Type 2 diabetes. PLAN: We will add additional diuretic today with metolazone. We will also increase his physical activity. Follow his labs closely, and we will plan for echocardiogram in the a.m. If improving, we will plan for discharge tomorrow. /[id number] EDY/JOSELYN
--- NOTE | 2019-04-16 10:37 | CR ---
INDICATION: Shortness of breath. CHEST: PA and lateral views of the chest, 04/14/19, were compared with 01/29/19 , again revealing evidence of exogenous obesity. The heart appears to be enlarged in the area of the left ventricle, as previously. Flowing hyperostotic changes are noted in the upper middle through lower thoracic spine, suggesting DISH. No evidence of CHF was seen. Pulmonary markings are unchanged from the previous study with no definite active infiltrate or effusion. The aorta is only minimally tortuous. IMPRESSION: 1. Stable appearance of the chest with no definite acute process. 2. ASHD with LVE. 3. DISH. 4. Exogenous obesity. MTDD
--- NOTE | 2019-04-16 10:40 | US ---
INDICATION: Azotemia. RENAL ULTRASOUND: Right kidney measurements: 12.3 x 5.4 x 5.3 cm. Left kidney measurements: 13.9 x 6.6 x 7.88 cm. Visualization of the kidneys is less than ideal due to the patients large body habitus. No focal mass lesion, either cystic or solid, could be identified. No calculi were seen. No obstructive uropathy was suggested. IMPRESSION: As visualized, normal renal ultrasound. [facility]
--- NOTE | 2019-04-16 15:21 | PN ---
DATE SEEN: 04/15/2019 HISTORY: Mr. Vila is a 49-year-old man with a history of alcoholism, dry for the last month now, who came in with increasing anasarca and was found to have a creatinine elevated to 2.3 with a BUN of 16. His previous creatinine was just measured at 0.7 on 04/04/2019 in the clinic. The patient was given normal saline at 75 mL/h and diuresed with IV furosemide yesterday. He states that he urinated a lot, but his weight is essentially unchanged. This morning, he still feels the same, bloated, mildly dyspneic, and complains of generalized soreness in left flank area, particularly when he lies in bed. PHYSICAL EXAMINATION: VITAL SIGNS: Blood pressure 151/76, pulse 70 and regular, respirations 18, O2 saturation 99% on room air, weight 399 pounds, and temp 98.3. SKIN: No rash. HEENT: Mouth is dry. LUNGS: Clear with excellent air movement to the bases. HEART: Regular without murmur or gallop. ABDOMEN: Obese, soft. Obvious edema of the abdominal wall is present. EXTREMITIES: 2+ pitting edema to the mid tibias. ASSESSMENT: 1. Acute renal insufficiency, question triggered by ARB. 2. Morbid obesity. 3. History of cirrhosis with alcoholism, dry one month. 4. Type 2 diabetes. 5. Compliance deficit with medications as an outpatient. PLAN: I will diurese him further with 40 mg additional IV Lasix this morning followed by 80 mg p.o. daily starting at noon today. We will also add Aldactone 50 mg daily. Saline lock his IV and recheck labs in the morning. We will continue to work at diuresis while monitoring kidney function and blood sugars. Anticipate another 24 to 48 hours of acute hospital stay followed by discharge to home. /[id number] EDY/JOSELYN GIVENS
[2019-04-17 08:10] LABS: IRON BIND.CAP.(TIBC) 168 ug/dL (250-450); IRON SATURATION 86 % (15-55); IRON, SERUM 145 ug/dL (38-169); UIBC 23 ug/dL (111-343)
--- NOTE | 2019-04-17 16:25 | DISCH ---
DISCHARGE DATE: 04/16/2019 FINAL DIAGNOSIS: Acute kidney failure, suspected nephrotoxic. OTHER DIAGNOSES: Alcoholic cirrhosis with anasarca and widespread edema with history of hepatic encephalopathy, chronic essential hypertension, noncompliance. SUMMARY: Mr. Vila is a 49-year-old man who was admitted with severe edema. He had been seen in the clinic and prescribed furosemide. The patient did not buy it as he says he had no money to pick it up. He came in the emergency room where laboratory evaluation found his hemoglobin 12.8, INR 1.6, and creatinine 2.3 with a BUN 16. The patient was given 12 hours of normal saline accompanied by intravenous Lasix. He had minimal diuresis with the first dose and was treated with additional IV Lasix the next day. He states he diuresed well after that. His breathing improved and he was anxious to go home. Ultrasound of the kidneys was done and no obstructive uropathy was suggested with normal-sized kidneys. He was discharged home to have followup as an outpatient. MEDICATIONS ON DISCHARGE: 1. Furosemide 80 mg b.i.d. 2. Aldactone 50 mg daily. 3. Lactulose 20 g daily p.r.n. no stools. DISCHARGE INSTRUCTION: He is to follow up with Dr. Lara in the office within one week for lab and recheck. /[id number] EDY/JOSELYN
== END 2019-04-16 10:15 | disposition home or self-care (01) | DRG 683 ==
LOC: FB.ED 10:55 → FB.MS 13:34 → OBSVTOIN 15:20
PROVIDERS: ADMIT Family Medicine; ATTEND Family Medicine
DX: N17.9 Acute kidney failure, unspecified (principal); Z68.43 Body mass index [BMI] 50.0-59.9, adult; F10.288 Alcohol dependence with other alcohol-induced disorder; K70.31 Alcoholic cirrhosis of liver with ascites; I10 Essential (primary) hypertension; N14.1 Nephropathy induced by other drugs, medicaments and biological substances; T50.995A Adverse effect of other drugs, medicaments and biological substances, initial encounter; K72.90 Hepatic failure, unspecified without coma; F17.210 Nicotine dependence, cigarettes, uncomplicated; E66.01 Morbid (severe) obesity due to excess calories; E11.9 Type 2 diabetes mellitus without complications; Z79.899 Other long term (current) drug therapy; Z91.14 Patient's other noncompliance with medication regimen
CPT/HCPCS: 36415; 71046; 76770; 80053; 80305-QW; 81001; 82607; 82728; 82962; 83540; 83550; 83735; 83880; 84484; 85018; 85025; 85045; 85610; 93005; 96360; 99285; 99285-25; A9270-GY; G0378; G0480; J1940; J3411; J3430; J7030; J7050